=== PATIENT | female | born 1980 | race Caucasian/White ===

== ENCOUNTER 2016-07-12 14:21 | Emergency (ER) | payer OTHER ==
[2016-07-12] MEDS ORDERED: IPRATROPIUM-ALBUTEROL 3 ML NEB INHALATION STA (17:22)
[2016-07-12] MEDS ORDERED: ACETAMINOPHEN TAB 500 MG TAB PO STA (17:22)
[2016-07-12] MEDS ORDERED: PROMETHAZ-COD 6.25-10 MG/5 ML 5 ML CUP PO STA (17:24)
[2016-07-12] MEDS ORDERED: SODIUM CHLORIDE 0.9% 1,000 ML IV ONE (17:24)
[2016-07-12] MEDS ORDERED: SODIUM CHLORIDE 0.9% 1,000 ML IV SCH (17:30)
--- NOTE | 2016-07-12 17:56 | XR ---
EXAMINATION TYPE: XR chest 2V DATE OF EXAM: 07/12/2016 5:49 PM COMPARISON: 05/01/2015 HISTORY: Cough and short of breath TECHNIQUE: Frontal and lateral views of the chest are obtained. FINDINGS: Heart and mediastinum are normal. Lungs are clear. Diaphragm is normal. Bony thorax is int act IMPRESSION: Normal chest. Inspiration is improved compared to last exam.
[2016-07-12 18:00] LABS: Anion Gap 19 mmol/L; Blood Urea Nitrogen 10 mg/dL (7-17); Calcium 10.1 mg/dL (8.4-10.2); Carbon Dioxide 20 mmol/L (22-30); Chloride 104 mmol/L (98-107); Glucose 126 mg/dL (74-99); Non-African American GFR(MDRD) >60 (>60 ml/min/1.73 sqM); Potassium 3.9 mmol/L (3.5-5.1); Sodium 143 mmol/L (137-145)
[2016-07-12 18:02] LABS: Basophils # (A) 0.1 k/uL (0-0.2); Basophils % (A) 1 %; CH 32.4; CHCM 33.6; Eosinophils # (A) 0.4 k/uL (0-0.7); Eosinophils % (A) 7 %; HCT 45.7 % (34.0-46.0); HDW 2.79; HGB 15.3 gm/dL (11.4-16.0); Luc # (Auto) 0.22; Luc % (Auto) 3; Lymphocytes # (A) 1.7 k/uL (1.0-4.8); Lymphocytes % (A) 26 %; MCH 32.4 pg (25.0-35.0); MCHC 33.5 g/dL (31.0-37.0); MCV 96.8 fL (80.0-100.0); Mean Platelet Volume 7.7; Monocytes # (A) 0.3 k/uL (0-1.0); Monocytes % (A) 5 %; Neutrophils # (A) 3.8 k/uL (1.3-7.7); Neutrophils % (A) 58 %; RBC 4.72 m/uL (3.80-5.40); RDW 13.8 % (11.5-15.5); WBC 6.6 k/uL (3.8-10.6); WBC (Perox) 6.48
--- NOTE | 2016-07-12 18:14 | ED ---
URI HPI - General Chief Complaint: Upper Respiratory Infection Stated Complaint: cough fever SOB Time Seen by Provider: 07/12/16 17:03 Source: patient, RN notes reviewed Mode of arrival: ambulatory Limitations: no limitations - History of Present Illness Initial Comments: Patient is a 35-year-old female chief complaint of cough for approximately 3 weeks. Patient reports that she's completed a round of Augmentin and is now currently taking doxycycline. Patient reports that in between the 2 doses she felt somewhat okay but then started a significant. Patient states that she's been doing breathing treatments and is not helping with her cough. She reports that she's felt feverish and chilled been alternating between Motrin and Tylenol. Last dose of Motrin was 2 hours prior to arrival. Patient arrives to the emergency department tachycardic 130 bpm. 95% on room air. BP 131/84. Temperature 98.0. Patient has a past medical history of Crohn's disease. She reports that this is managed well. - Related Data Home Medications Medication Instructions Recorded Confirmed Mesalamine [Lialda] 3 gm PO DAILY 11/17/13 07/12/16 Mometasone Inhalr 220 Mcg/Puff 1 puff INHALATION RT-DAILY 11/17/13 07/12/16 [Asmanex] Omeprazole [PriLOSEC] 20 mg PO AC-BRKFST 11/17/13 07/12/16 Albuterol Inhaler [Ventolin Hfa 2 puff INHALATION RT-Q6H PRN 05/01/15 07/12/16 Inhaler] Albuterol Nebulized [Ventolin 2.5 mg INHALATION TID PRN 07/12/16 07/12/16 Nebulized] Cetirizine HCl [Zyrtec] 10 mg PO DAILY 07/12/16 07/12/16 Cholestyramine (with Sugar) 1 scoop PO DAILY 07/12/16 07/12/16 [Questran Powder] Doxycycline Hyclate [Vibramycin] 100 mg PO BID 07/12/16 07/12/16 Previous Rx's Medication Instructions Recorded Promethazine/Dextromethorphan 5 ml PO TID #120 ml 07/12/16 [Phenergan DM Syrup] predniSONE 20 mg PO BID 3 Days 07/12/16 Allergies Allergy/AdvReac Type Severity Reaction Status Date / Time escitalopram oxalate AdvReac Hallucinati Verified 07/12/16 18:18 [From Lexapro] ons Review of Systems ROS Statement: Those systems with pertinent positive or pertinent negative responses have been documented in the HPI. ROS Other: All systems not noted in ROS Statement are negative. 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) History of Any Multi-Drug Resistant Organisms: None Reported Past Surgical History: Appendectomy, Bowel Resection, Section, Cholecystectomy, Uterine Ablation Additional Past Surgical History / Comment(s): colon resection Past Anesthesia/Blood Transfusion Reactions: No Reported Reaction Past Psychological History: No Psychological Hx Reported Smoking Status: Never smoker Past Alcohol Use History: Occasional Past Drug Use History: None Reported - Past Family History Father Family Medical History: Hypertension Additional Family Medical History / Comment(s): diabetes, high bp Mother Family Medical History: Diabetes Mellitus, Hypertension Additional Family Medical History / Comment(s): uncles have heart problems but not dad Brother(s) Family Medical History: Diabetes Mellitus, Hypertension General Exam Limitations: no limitations General appearance: alert, in no apparent distress Head exam: Present: atraumatic, normocephalic, normal inspection Eye exam: Present: normal appearance, PERRL, EOMI. Absent: scleral icterus, conjunctival injection, periorbital swelling ENT exam: Present: normal exam, mucous membranes moist Neck exam: Present: normal inspection. Absent: tenderness, meningismus, lymphadenopathy Respiratory exam: Present: normal lung sounds bilaterally, other (significant coughing). Absent: respiratory distress, wheezes, rales, rhonchi, stridor Cardiovascular Exam: Present: regular rate, normal rhythm, normal heart sounds. Absent: systolic murmur, diastolic murmur, rubs, gallop, clicks GI/Abdominal exam: Present: soft, normal bowel sounds. Absent: distended, tenderness, guarding, rebound, rigid Extremities exam: Present: normal inspection, full ROM, normal capillary refill. Absent: tenderness, pedal edema, joint swelling, calf tenderness Back exam: Present: normal inspection Neurological exam: Present: alert, oriented X3, CN II-XII intact Psychiatric exam: Present: normal affect, normal mood Skin exam: Present: warm, dry, intact, normal color. Absent: rash Course Vital Signs 07/12/16 07/12/16 07/12/16 14:52 18:24 18:26 Temperature 97.5 F L 98.0 F Pulse Rate 130 H 106 H 104 H Respiratory 20 18 Rate Blood Pressure 131/84 140/89 O2 Sat by Pulse 95 97 Oximetry 07/12/16 07/12/16 18:32 20:26 Temperature 97.9 F Pulse Rate 101 H 98 Respiratory 18 Rate Blood Pressure 134/78 O2 Sat by Pulse 96 Oximetry Medical Decision Making - Medical Decision Making Patient is a 35-year-old female chief complaint of cough for approximately 3 weeks. Patient reports that she's completed a round of Augmentin and is now currently taking doxycycline. Patient reports that in between the 2 doses she felt somewhat okay but then started a significant. Patient states that she's been doing breathing treatments and is not helping with her cough. She reports that she's felt feverish and chilled been alternating between Motrin and Tylenol. Last dose of Motrin was 2 hours prior to arrival. Patient arrives to the emergency department tachycardic 130 bpm. 95% on room air. BP 131/84. Temperature 98.0. Patient has a past medical history of Crohn's disease. She reports that this is managed well. Patient has a continuous cough in the emergency department. She has no wheezing or signs of respiratory distress. Patient denies any other physical symptoms. She has no fever at this time. Patient is currently taking doxycycline which she was prescribed a few days ago. Patient lab work was reviewed to be negative. Including a d-dimer. Discussed case with Dr. Ponce. I also discussed the case with the patient and she stated that she wants to go home. Patient will be discharged with cough syrup and steroids. Discussed close follow-up with primary care physician. Patient received treatment plan will comply. Return parameters were discussed. - Lab Data Result diagrams: 07/12/16 17:38 07/12/16 17:38 Lab Results 07/12/16 07/12/16 07/12/16 Range/Units 17:38 17:38 17:38 WBC 6.6 (3.8-10.6) k/uL RBC 4.72 (3.80-5.40) m/uL Hgb 15.3 (11.4-16.0) gm/dL Hct 45.7 (34.0-46.0) % MCV 96.8 (80.0-100.0) fL MCH 32.4 (25.0-35.0) pg MCHC 33.5 (31.0-37.0) g/dL RDW 13.8 (11.5-15.5) % Plt Count 273 (150-450) k/uL Neutrophils % 58 % Lymphocytes % 26 % Monocytes % 5 % Eosinophils % 7 % Basophils % 1 % Neutrophils # 3.8 (1.3-7.7) k/uL Lymphocytes # 1.7 (1.0-4.8) k/uL Monocytes # 0.3 (0-1.0) k/uL Eosinophils # 0.4 (0-0.7) k/uL Basophils # 0.1 (0-0.2) k/uL D-Dimer (<0.60) mg/L FEU Sodium 143 (137-145) mmol/L Potassium 3.9 (3.5-5.1) mmol/L Chloride 104 (98-107) mmol/L Carbon Dioxide 20 L (22-30) mmol/L Anion Gap 19 mmol/L BUN 10 (7-17) mg/dL Creatinine 0.75 (0.52-1.04) mg/dL Est GFR (MDRD) Af Amer >60 (>60 ml/min/1.73 sqM) Est GFR (MDRD) Non-Af >60 (>60 ml/min/1.73 sqM) Glucose 126 H (74-99) mg/dL Calcium 10.1 (8.4-10.2) mg/dL Magnesium (1.6-2.3) mg/dL Influenza Type A RNA Not Detected (Not Detectd) Influenza Type B (PCR) Not Detected (Not Detectd) 07/12/16 07/12/16 Range/Units 17:38 17:38 WBC (3.8-10.6) k/uL RBC (3.80-5.40) m/uL Hgb (11.4-16.0) gm/dL Hct (34.0-46.0) % MCV (80.0-100.0) fL MCH (25.0-35.0) pg MCHC (31.0-37.0) g/dL RDW (11.5-15.5) % Plt Count (150-450) k/uL Neutrophils % % Lymphocytes % % Monocytes % % Eosinophils % % Basophils % % Neutrophils # (1.3-7.7) k/uL Lymphocytes # (1.0-4.8) k/uL Monocytes # (0-1.0) k/uL Eosinophils # (0-0.7) k/uL Basophils # (0-0.2) k/uL D-Dimer 0.47 (<0.60) mg/L FEU Sodium (137-145) mmol/L Potassium (3.5-5.1) mmol/L Chloride (98-107) mmol/L Carbon Dioxide (22-30) mmol/L Anion Gap mmol/L BUN (7-17) mg/dL Creatinine (0.52-1.04) mg/dL Est GFR (MDRD) Af Amer (>60 ml/min/1.73 sqM) Est GFR (MDRD) Non-Af (>60 ml/min/1.73 sqM) Glucose (74-99) mg/dL Calcium (8.4-10.2) mg/dL Magnesium 2.0 (1.6-2.3) mg/dL Influenza Type A RNA (Not Detectd) Influenza Type B (PCR) (Not Detectd) - Radiology Data Radiology results: report reviewed Chest x-ray is negative for any acute process. Disposition Clinical Impression: Cough Disposition: HOME SELF-CARE Condition: Stable Instructions: Upper Respiratory Infection (ED) Additional Instructions: Patient has follow-up with primary care provider on Wednesday or Wednesday. Continue to take anabiotic. Return to the emergency department if any alarming signs or symptoms occur. Prescriptions: Promethazine/Dextromethorphan [Phenergan DM Syrup] 5 ml PO TID #120 ml predniSONE 20 mg PO BID 3 Days Referrals: Kris Sanders MD [Primary Care Provider] - 1-2 days Time of Disposition: 20:27
[2016-07-12 18:25] VITALS: RESP 18
[2016-07-12] MEDS ORDERED: methylPREDNISolone SOD SUCCI 125 MG/2 ML VIAL IV STA (20:26)
[2016-07-12 20:27] VITALS: BP 134/78; PULSE 98; TEMP 97.9
== END 2016-07-12 20:39 | disposition home or self-care (01) ==
LOC: EC 14:21
DX: R05 Cough (principal); J45.909 Unspecified asthma, uncomplicated; K21.9 Gastro-esophageal reflux disease without esophagitis; Z79.51 Long term (current) use of inhaled steroids; Z79.899 Other long term (current) drug therapy; Z87.19 Personal history of other diseases of the digestive system
CPT/HCPCS: 96361 ×4; 96374 ×2; 99283 ×2; 36415; 94640; 93005; 85379; 80048; 83735; 85025; 87040; 87502; 71020; J2930

== ENCOUNTER → 2016-08-26 | Outpatient (CLI) | payer OTHER ==
--- NOTE | 2016-08-26 21:30 | MR ---
EXAMINATION TYPE: MR angio head wo con DATE OF EXAM: 08/26/2016 COMPARISON: MRA brain December 29, 2014. 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 2-D and 3-D postprocessing imaging is performed. FINDINGS: A slightly dominant left vertebral artery is redemonstrated. Vertebral arteries are patent to basilar junction. There is hypoplastic left posterior communicating artery. There is small caliber but patent right posterior communicating artery. No significant stenosis or aneurysmal change is see n in the posterior circulation. Images of the anterior circulation show tortuous course to the anterior communicating artery which is patent. No significant focal stenosis or aneurysmal change is seen. IMPRESSION: No aneurysmal change at level of upper [place] of [place]. No significant change from prior.
--- NOTE | 2016-08-26 21:57 | MR ---
EXAMINATION TYPE: MR brain wo/w con DATE OF EXAM: 08/26/2016 COMPARISON: MRI brain December 29, 2014. 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 FINDINGS: Diffusion weighted images demonstrate no evidence of a recent infarct or other diffusion ab normality. There is no extra-axial fluid collection or significant white matter signal abnormality. The ventricular system and cisternal spaces are normal in size and appearance. The brain volume is age appropriate. Midline structures demonstrate normal morphology. The craniocervical junction appears within normal limits. Post contrast images demonstrate no abnormal enhancement including visualized portion of fac e. The dural venous sinuses appear patent. There is mild mucosal thickening involving maxillary sinus es bilaterally slightly more prominent versus prior. There is mild to moderate mucosal thickening inv olving bilateral ethmoid sinuses more prominent versus prior. IMPRESSION: More prominent chronic paranasal sinus disease as detailed above otherwise unremarkable octavia abreu
== END | disposition home or self-care (01) ==
LOC: RADMRIMAIN 20:35
PROVIDERS: ATTEND Ophthalmology
DX: Q28.3 Other malformations of cerebral vessels (principal)
CPT/HCPCS: 70544; 70553; A9577

== ENCOUNTER → 2017-08-10 | Outpatient (CLI) | payer BC ==
[2017-08-10 12:20] LABS: ALT 133 U/L (9-52); AST 123 U/L (14-36); Albumin 4.6 g/dL (3.5-5.0); Alkaline Phosphatase 132 U/L (38-126); Anion Gap 16 mmol/L; Blood Urea Nitrogen 10 mg/dL (7-17); Calcium 10.3 mg/dL (8.4-10.2); Carbon Dioxide 23 mmol/L (22-30); Chloride 103 mmol/L (98-107); Glucose 102 mg/dL (74-99); Potassium 4.5 mmol/L (3.5-5.1); Sodium 142 mmol/L (137-145); Total Bilirubin 0.8 mg/dL (0.2-1.3); Total Protein 7.2 g/dL (6.3-8.2)
[2017-08-10 12:22] LABS: Basophils # (A) 0.1 k/uL (0-0.2); Basophils % (A) 1 %; Eosinophils # (A) 0.5 k/uL (0-0.7); Eosinophils % (A) 6 %; HCT 43.1 % (34.0-46.0); HGB 14.4 gm/dL (11.4-16.0); Lymphocytes # (A) 2.3 k/uL (1.0-4.8); Lymphocytes % (A) 26 %; MCH 31.8 pg (25.0-35.0); MCHC 33.4 g/dL (31.0-37.0); Mean Platelet Volume 7.3; Monocytes # (A) 0.3 k/uL (0-1.0); Monocytes % (A) 4 %; Neutrophils # (A) 5.3 k/uL (1.3-7.7); Neutrophils % (A) 61 %; Platelet Count 262 k/uL (150-450); RBC 4.53 m/uL (3.80-5.40); WBC 8.7 k/uL (3.8-10.6)
== END | disposition home or self-care (01) ==
LOC: LABWHC1 11:36
PROVIDERS: ATTEND Internal Medicine Gastroenterology
DX: K50.90 Crohn's disease, unspecified, without complications (principal)
CPT/HCPCS: 36415; 80053; 85025

== ENCOUNTER → 2017-08-17 | Outpatient (CLI) | payer BC ==
[2017-08-17 13:50] LABS: Albumin 4.7 g/dL (3.5-5.0); Bilirubin, Delta 0.2 mg/dL (0.0-0.2); Bilirubin,Unconjugated 0.6 mg/dL (0.0-1.1); Total Bilirubin 0.8 mg/dL (0.2-1.3); Total Protein 7.2 g/dL (6.3-8.2)
[2017-08-17 18:27] LABS: Protein, Total 7.1 g/dL (6.2-8.2)
[2017-08-17 18:47] LABS: Iron Saturation 33.53 (12.00-45.00)
[2017-08-17 19:53] LABS: Hepatitis A Antibody IgM Non-Reactive (Non-Reactive); Hepatitis B Core IgM Non-Reactive (Non-Reactive)
[2017-08-18 12:52] LABS: Albumin 4.34 g/dL (3.80-4.90); Gamma Globulin 0.65 g/dL (0.70-1.50)
[2017-08-18 15:04] LABS: Ceruloplasmin 30.5 mg/dL (20.0-60.0)
== END | disposition home or self-care (01) ==
LOC: LABWHC1 12:35
PROVIDERS: ATTEND Physician Assistant
DX: R74.8 Abnormal levels of other serum enzymes (principal)
CPT/HCPCS: 36415; 80074; 80076; 82103; 82390; 82728; 83516; 83540; 83550; 84165; 86038

== ENCOUNTER → 2017-09-06 | Outpatient (CLI) | payer BC ==
--- NOTE | 2017-09-06 08:35 | FL ---
EXAMINATION TYPE: FL barium swallow DATE OF EXAM: 09/06/2017 COMPARISON: NONE HISTORY: Dysphasia hoarseness of voice TECHNIQUE: A single contrast UGI study is performed. FINDINGS: Esophagus dilates to normal caliber has normal contour to the gastroesophageal junction. Gastroesopha geal junction opens to normal caliber. Tertiary contractions are evident during the examination. There is incomplete stripping of the esopha geal bolus in the horizontal drinking position with a secondary contraction evident. IMPRESSIONS: 1. Presbyesophagus
== END | disposition home or self-care (01) ==
LOC: RADFLMAIN 07:51
PROVIDERS: ATTEND Otolaryngology
DX: K22.8 Other specified diseases of esophagus (principal)
CPT/HCPCS: 74220

== ENCOUNTER → 2017-10-20 | Day surgery (SDC) | payer BC ==
[2017-10-14 12:36] VITALS: BMI 36.3
[~2017-10-20] MED LIST: LACTATED RINGERS 1,000 ML IV SCH; LIDOCAINE 1% 20 ML VIAL (10MG/ML) FOR IV START SQ ONE; LIDOCAINE 1% INJ 10MG/ML (20 ML MDV) ONE; PROPOFOL 10 MG/ML 20 ML VIAL IV ONE; fentaNYL (PF) 50 MCG/ML 2 ML AMP ONE
[2017-10-20 07:57] VITALS: RESP 16; TEMP 98.1
--- NOTE | 2017-10-20 09:06 | P.PCN ---
Date of Procedure: 10/20/17 Procedure(s) Performed: BRIEF HISTORY: Patient is a 36-year-old, pleasant, male, scheduled for an upper endoscopy as a part of evaluation of long-standing history of GERD and chronic cough for the last few months duration. She is on Prilosec 20 mg daily despite which remains symptomatic. She was dilated by Dr. Hardy and Dr. Yoo. Recent barium esophagogram showed presbyesophagus. Because of the persistent cough she is scheduled for an upper endoscopy to evaluate further PROCEDURE PERFORMED: Esophagogastroduodenoscopy with biopsy. PREOPERATIVE DIAGNOSIS: Chronic cough/long-standing history of GERD. IV sedation per anesthesia. PROCEDURE: After informed consent was obtained, the patient was brought into the endoscopy unit. IV sedation was administered by Anesthesia under continuous monitoring. Initially the Olympus GIF-140 video endoscope was inserted into the mouth. Esophagus intubated without any difficulty. It was gradually advanced into the stomach and duodenum and carefully examined. The bulb and the second part of the duodenum appeared normal. The scope at this time was withdrawn to the stomach, adequately insufflated with air, and upon careful examination, mucosa of the antrum, had patchy areas of erythema in the prepyloric area and biopsies were done from this area. The body, cardia and the fundus appeared normal. The scope was then withdrawn into the esophagus. The GE junction was located at 39 cm from the incisors. The esophagus appeared normal. Biopsies were done from the distal esophagus. There were no erosions or ulcerations seen and the patient tolerated the procedure well. IMPRESSION: 1. Normal-appearing esophagus with no evidence of esophagitis, esophageal stricture or Escoto's esophagus. 2. Minimal antral gastritis. RECOMMENDATIONS: The findings of this examination were discussed with the patient as well as a family. She was advised to follow with the biopsy results. She was also advised to increase the Prilosec to 20 mg twice daily to be taken half hour before breakfast and dinnertime and follow antireflux measures. She will be seen in office in 3 months..
[2017-10-20 09:28] VITALS: BP 121/80; PULSE 89
== END | disposition home or self-care (01) ==
LOC: ORWHC2ENDO 07:31
PROVIDERS: ATTEND Internal Medicine Gastroenterology
DX: K21.9 Gastro-esophageal reflux disease without esophagitis (principal); K29.50 Unspecified chronic gastritis without bleeding; J45.909 Unspecified asthma, uncomplicated; Z88.8 Allergy status to other drugs, medicaments and biological substances; Z79.51 Long term (current) use of inhaled steroids; Z79.899 Other long term (current) drug therapy
CPT/HCPCS: 43239; 81025; 88305; J2001; J3010; J2704

== ENCOUNTER → 2017-11-03 | Outpatient (CLI) | payer BC ==
--- NOTE | 2017-11-04 09:40 | MM ---
Reason for exam: clinical finding. Last mammogram was performed 3 years and 3 months ago. History: Took hormonal contraceptives for 6 years. Physical Findings: Nurse did not find any significant physical abnormalities on exam. MG Diagnostic Mammo w CAD GABRIEL Bilateral CC and MLO view(s) were taken. ML and spot compression CC view(s) were taken of the right breast. Prior study comparison: August 14, 2014, right breast MG diagnostic mammo RT w CAD. February 13, 2014, right breast MG work up mamm w CAD RT. There are scattered fibroglandular densities. Asymmetric density centrally on the right CC view disperses on spot compression. No significant new findings when compared with previous films. These results were verbally communicated with the patient and result sheet given to the patient on 11/03/17. ASSESSMENT: Negative, BI-RAD 1 RECOMMENDATION: Routine screening mammogram of both breasts in 1 year. Manage on a clinical basis with regard to right breast twinges.
== END | disposition home or self-care (01) ==
LOC: RADMAMWWP 14:06
PROVIDERS: ATTEND Obstetrics & Gynecology
DX: N64.4 Mastodynia (principal)
CPT/HCPCS: 77066

== ENCOUNTER → 2017-12-29 | Day surgery (SDC) | payer BC ==
[2017-12-24 14:37] VITALS: BMI 36.3
[2017-12-29 14:01] VITALS: BP 137/93; PULSE 89; RESP 16; TEMP 97.4
--- NOTE | 2018-01-07 02:26 | PCN ---
PROCEDURE NOTE DATE OF SERVICE: 12/29/2017. BRIEF HISTORY: The patient is a 37-year-old pleasant white female who was admitted scheduled for a high-resolution esophageal manometry as a part of evaluation of intermittent dysphagia to solids for the last 3 months duration. The patient also has chronic cough and GERD- like symptoms. She was treated with PPIs in the past with no help. Recent upper endoscopy a month ago was unremarkable. She had a 24-hour pH study that did not show significant acid reflux. Because of the persistent symptoms and intermittent dysphagia to solids, she is scheduled for esophageal manometry to evaluate further. PROCEDURE PERFORMED: High-resolution impedance esophageal manometry. PREOPERATIVE DIAGNOSIS: Gastroesophageal reflux disease/chronic hoarseness and dysphagia. PROCEDURE: After informed consent was obtained from the patient, she was brought into the endoscopy unit. The procedure was performed by Endoscopy nurse, . The esophageal manometry catheter was passed from the external nostril and was gently advanced into the distal esophagus and into the stomach. The study was performed using liquid and viscous swallows. The study was interpreted using [place] classification. FINDINGS: 1. Lower esophageal sphincter data (mean IRP) mean integral residual pressure is 6 mmHg. 2. Lower esophageal body: Mean DCI 3726 mmHg. Peristaltic contractions were 100%. 3. Distal latency within normal limits. 4. Impedance study, liquid transit 100%, viscus transit 100%. INTERPRETATION: The impedance manometry study shows normal lower esophageal sphincter pressure and motility pattern in the esophageal body is within normal limits. There is no evidence of esophageal dysmotility. MMAPL / IJN: [id number] /
== END ==
LOC: ORWHC2ENDO 13:47
PROVIDERS: ATTEND Internal Medicine Gastroenterology
DX: K21.9 Gastro-esophageal reflux disease without esophagitis (principal); R13.10 Dysphagia, unspecified; R49.0 Dysphonia
CPT/HCPCS: 91010

== ENCOUNTER 2018-03-16 08:36 | Day surgery (SDC) | payer BC ==
[2018-03-16 09:14] LABS: Mean Platelet Volume 7.1; Platelet Count 243 k/uL (150-450)
[2018-03-16 09:24] LABS: INR 0.9 (<1.2)
[2018-03-16 09:28] VITALS: TEMP 98
[2018-03-16] MEDS ORDERED: ALPRAZolam 0.5 MG TAB PO STA (09:28)
[2018-03-16] MEDS ORDERED: HYDROmorphone 1 MG/ML 1 ML SYRINGE IVP STA (09:39)
[2018-03-16] MEDS ORDERED: ONDANSETRON 4 MG/2 ML VIAL IVP STA (10:58)
[2018-03-16] MEDS ORDERED: ONDANSETRON 4 MG/2 ML VIAL ONE (11:01)
[2018-03-16 12:21] VITALS: RESP 16
--- NOTE | 2018-03-16 13:00 | CT ---
EXAMINATION TYPE: CT biopsy liver DATE OF EXAM: 03/16/2018 COMPARISON: NONE HISTORY: Elevated LFTs CT DLP: 804mGycm The procedure was explained to the patient. The risks, complications, benefits, and alternatives wer e discussed and any questions were answered. Informed consent was obtained. Patient was placed supi ne on the CT table and prepped and draped in the usual sterile fashion. All elements of maximal barrier and sterile technique utilized. Utilizing CT guidance, an 18 gauge core biopsy needle access into the posterior segment right lobe o f the liver was achieved and a single 18 gauge core sample was obtained. The patient was stable thro ughout the procedure and remained stable upon discharge. IMPRESSION: 1. Successful 18 gauge core biopsy of the liver.
[2018-03-16 14:59] VITALS: BP 126/71; PULSE 81
== END 2018-03-16 14:34 | disposition home or self-care (01) ==
LOC: RADPROMAIN 08:36
PROVIDERS: ATTEND Internal Medicine Gastroenterology
DX: K75.81 Nonalcoholic steatohepatitis (NASH) (principal); K74.0 Hepatic fibrosis
CPT/HCPCS: 85049; 85610; 88313; 88307; 36415; 47000; 77012; J2405; J1170

== ENCOUNTER → 2018-07-14 | Outpatient (CLI) | payer BC ==
[2018-07-14 16:33] LABS: Albumin 4.8 g/dL (3.80-4.90); Albumin/Globulin Ratio 2.09 (1.60-3.17); Anion Gap 11.8 mmol/L (4.00-12.00); Calcium 9.8 mg/dL (8.7-10.3); Carbon Dioxide 22.2 mmol/L (21.6-31.8); Globulin 2.3 g/dL (1.6-3.3); Potassium 4.3 mmol/L (3.5-5.5); Total Bilirubin 0.6 mg/dL (0.3-1.2); Total Protein 7.1 g/dL (6.2-8.2)
== END | disposition home or self-care (01) ==
LOC: LABWHC1 10:32
PROVIDERS: ATTEND Internal Medicine Gastroenterology
DX: K76.0 Fatty (change of) liver, not elsewhere classified (principal)
CPT/HCPCS: 36415; 80053

== ENCOUNTER → 2018-09-02 | Outpatient (CLI) | payer BC ==
[2018-09-02 10:37] LABS: Basophils # (A) 0.1 k/uL (0-0.2); Basophils % (A) 1 %; Eosinophils # (A) 0.7 k/uL (0-0.7); Eosinophils % (A) 7 %; HCT 43.2 % (34.0-46.0); HGB 13.8 gm/dL (11.4-16.0); Lymphocytes # (A) 2.4 k/uL (1.0-4.8); Lymphocytes % (A) 24 %; MCH 30.7 pg (25.0-35.0); Monocytes # (A) 0.5 k/uL (0-1.0); Monocytes % (A) 5 %; Neutrophils % (A) 61 %; Platelet Count 234 k/uL (150-450); RDW 13.9 % (11.5-15.5); WBC 9.8 k/uL (3.8-10.6)
[2018-09-02 16:09] LABS: LDL Cholesterol,Calculated 129.4 mg/dL (0.0-131.0); VLDL Calculation 34.6 mg/dL (5.00-40.00)
== END | disposition home or self-care (01) ==
LOC: LABWHC1 09:30
PROVIDERS: ATTEND Internal Medicine
DX: Z00.00 Encounter for general adult medical examination without abnormal findings (principal); G51.39 Clonic hemifacial spasm, unspecified; K50.90 Crohn's disease, unspecified, without complications; E55.9 Vitamin D deficiency, unspecified
CPT/HCPCS: 36415; 80061; 82306; 84443; 85025

== ENCOUNTER → 2018-11-08 | Outpatient (CLI) | payer BC ==
--- NOTE | 2018-11-08 10:43 | MR ---
EXAMINATION TYPE: MR brain wo/w con DATE OF EXAM: 11/08/2018 COMPARISON: MR brain 08/26/2016 HISTORY: Clonic hemifacial spasm, left TECHNIQUE: Multiplanar, multisequence images of the brain and brainstem is performed without and with IV contras t, utilizing 9.5 mL intravenous Gadavist . FINDINGS: Diffusion weighted images demonstrate no evidence of a recent infarct or other diffusion ab normality. There is no extra-axial fluid collection or significant white matter signal abnormality. The ventricular system and cisternal spaces are normal in size and appearance. The brain volume is age appropriate. Midline structures demonstrate normal morphology. The craniocervical junction appears within normal limits. Post contrast images demonstrate no abnormal enhancement. The dural venous sinuses appear pa tent. The visualized sinuses are remarkable for mucoperiosteal thickening in ethmoid air cells, bilat eral maxillary sinus, possible polyp left maxillary sinus, and the globes are intact. IMPRESSION: Stable unremarkable brain MRI. Sinus disease.
== END | disposition home or self-care (01) ==
LOC: RADMRIMAIN 08:58
PROVIDERS: ATTEND Psychiatry & Neurology Neurology
DX: G51.32 Clonic hemifacial spasm, left (principal)
CPT/HCPCS: 70553; A9585

== ENCOUNTER → 2018-12-28 | Outpatient (CLI) | payer BC ==
--- NOTE | 2018-12-30 11:51 | MM ---
Reason for exam: screening (asymptomatic). Last mammogram was performed 1 year and 2 months ago. History: Took hormonal contraceptives for 6 years. Physical Findings: A clinical breast exam by your physician is recommended on an annual basis and results should be correlated with mammographic findings. MG Screening Mammo w CAD Bilateral CC and MLO view(s) were taken. Prior study comparison: November 03, 2017, bilateral MG diagnostic mammo w CAD GABRIEL. August 14, 2014, right breast MG diagnostic mammo RT w CAD. The breast tissue is heterogeneously dense. This may lower the sensitivity of mammography. No significant changes when compared with prior studies. ASSESSMENT: Negative, BI-RAD 1 RECOMMENDATION: Routine screening mammogram of both breasts in 1 year.
== END | disposition home or self-care (01) ==
LOC: RADMAMWWP 10:44
PROVIDERS: ATTEND Obstetrics & Gynecology
DX: Z12.31 Encounter for screening mammogram for malignant neoplasm of breast (principal)
CPT/HCPCS: 77067

== ENCOUNTER 2019-01-20 10:13 | Day surgery (SDC) | payer BC ==
[2019-01-18 14:34] VITALS: BMI 36.3
[~2019-01-20 10:13] MED LIST changes: +LIDOCAINE 1% 20 ML VIAL (10MG/ML) FOR IV START INTRADERMA PRN; -LIDOCAINE 1% 20 ML VIAL (10MG/ML) FOR IV START SQ ONE; -LIDOCAINE 1% INJ 10MG/ML (20 ML MDV) ONE; -PROPOFOL 10 MG/ML 20 ML VIAL IV ONE; -fentaNYL (PF) 50 MCG/ML 2 ML AMP ONE
[2019-01-20 10:53] VITALS: RESP 16; TEMP 98
[2019-01-20 10:55] LABS: Glucose,Whole Blood 130 mg/dL (75-99)
[2019-01-20] MEDS ORDERED: PROPOFOL 10 MG/ML 20 ML VIAL IV ONE (11:21)
--- NOTE | 2019-01-20 11:44 | P.PCN ---
Date of Procedure: 01/20/19 Procedure(s) Performed: BRIEF HISTORY: Patient is a 38-year-old pleasant female scheduled for an elective colonoscopy as a part of surveillance of long-standing history of Crohn's disease. She is status post terminal ileal resection several years ago. Maintained on Lialda 4 tablets daily. He remains in clinical remission. PROCEDURE PERFORMED: Colonoscopy. PREOPERATIVE DIAGNOSIS: History of Crohn's disease. IV sedation per Anesthesia. PROCEDURE: After informed consent was obtained, the patient, was brought into the endoscopy unit. IV sedation was administered by Anesthesia under continuous monitoring. Digital rectal examination was normal. Initially the Olympus CF-160 flexible video colonoscope was then inserted in the rectum, gradually advanced into the right colon without any difficulty. The ileocolonic anastomosis was visualized and appeared normal. The scope was advanced into the distal ileum and 20 cm visualized that appeared normal. Mucosa of the ascending colon, transverse colon, descending colon, sigmoid colon, and rectum appeared normal. Retroflexion was performed in the rectum and no lesions were seen. The patient tolerated the procedure well. IMPRESSION: Normal-appearing colon from rectum to right colon with no evidence of colitis or colorectal neoplasia Normal ileocolic anastomosis but no evidence of recurrent Crohn's disease RECOMMENDATIONS: Findings of this examination were discussed with the patient as well his family. She was advised to have a repeat surveillance colonoscopy in 3-5 years..
[2019-01-20 12:20] VITALS: BP 143/93; PULSE 70
== END 2019-01-20 12:30 | disposition home or self-care (01) ==
LOC: ORWHC2ENDO 10:13
PROVIDERS: ATTEND Internal Medicine Gastroenterology
DX: K50.90 Crohn's disease, unspecified, without complications (principal); J45.909 Unspecified asthma, uncomplicated; E11.9 Type 2 diabetes mellitus without complications; N30.10 Interstitial cystitis (chronic) without hematuria; F41.9 Anxiety disorder, unspecified; K21.9 Gastro-esophageal reflux disease without esophagitis; H57.9 Unspecified disorder of eye and adnexa; Z90.49 Acquired absence of other specified parts of digestive tract; Z79.84 Long term (current) use of oral hypoglycemic drugs; Z79.51 Long term (current) use of inhaled steroids; Z79.899 Other long term (current) drug therapy; Z88.8 Allergy status to other drugs, medicaments and biological substances
CPT/HCPCS: 45378; 81025; J2704

== ENCOUNTER → 2019-01-21 | Outpatient (CLI) | payer BC ==
[2019-01-21 18:46] LABS: African American GFR (CKD) 125.6 (60.0-200.0); Albumin 4.6 g/dL (3.80-4.90); Albumin/Globulin Ratio 2.19 (1.60-3.17); Anion Gap 12.7 mmol/L (4.00-12.00); BUN/Creat Ratio 8.57 Ratio (12.00-20.00); Calcium 9.4 mg/dL (8.7-10.3); Carbon Dioxide 24.3 mmol/L (21.6-31.8); Globulin 2.1 g/dL (1.6-3.3); Potassium 4.5 mmol/L (3.5-5.5); Total Bilirubin 0.8 mg/dL (0.2-1.2); Total Protein 6.7 g/dL (6.2-8.2)
== END | disposition home or self-care (01) ==
LOC: LABWHC1 10:09
PROVIDERS: ATTEND Physician Assistant
DX: K76.0 Fatty (change of) liver, not elsewhere classified (principal)
CPT/HCPCS: 36415; 80053

== ENCOUNTER → 2019-08-29 | Outpatient (CLI) | payer BC ==
[2019-08-29 20:02] LABS: African American GFR (CKD) 125.6 (60.0-200.0); Albumin 4.6 g/dL (3.80-4.90); Albumin/Globulin Ratio 2.19 (1.60-3.17); Anion Gap 10.6 mmol/L (4.00-12.00); BUN/Creat Ratio 12.86 Ratio (12.00-20.00); Calcium 9.7 mg/dL (8.7-10.3); Carbon Dioxide 23.4 mmol/L (21.6-31.8); Globulin 2.1 g/dL (1.6-3.3); Non-African American GFR(CKD) 108.4 (60.0-200.0); Potassium 4.6 mmol/L (3.5-5.5); Total Bilirubin 0.8 mg/dL (0.2-1.2); Total Protein 6.7 g/dL (6.2-8.2)
== END | disposition home or self-care (01) ==
LOC: LABWHC1 11:01
PROVIDERS: ATTEND Physician Assistant
DX: K76.0 Fatty (change of) liver, not elsewhere classified (principal)
CPT/HCPCS: 36415; 80053

== ENCOUNTER 2020-01-27 11:26 | Emergency (ER) | payer BC ==
[2020-01-27 11:43] VITALS: RESP 18; TEMP 98.7
[2020-01-27 12:22] LABS: Basophils # (A) 0.2 k/uL (0-0.2); Basophils % (A) 2 %; Eosinophils # (A) 0.7 k/uL (0-0.7); Eosinophils % (A) 8 %; HCT 46.7 % (34.0-46.0); HGB 15.3 gm/dL (11.4-16.0); Lymphocytes # (A) 2.3 k/uL (1.0-4.8); Lymphocytes % (A) 26 %; MCH 32.7 pg (25.0-35.0); MCHC 32.9 g/dL (31.0-37.0); MCV 99.4 fL (80.0-100.0); Mean Platelet Volume 8.1; Monocytes # (A) 0.4 k/uL (0-1.0); Monocytes % (A) 5 %; Neutrophils # (A) 4.9 k/uL (1.3-7.7); Neutrophils % (A) 57 %; Platelet Count 198 k/uL (150-450); RDW 12.4 % (11.5-15.5); WBC 8.6 k/uL (3.8-10.6)
[2020-01-27 12:39] LABS: ALT 31 U/L (4-34); AST 37 U/L (14-36); African American GFR (CKD) >90 (>60 ml/min/1.73 sqM); Albumin 4.5 g/dL (3.5-5.0); Alkaline Phosphatase 105 U/L (38-126); Anion Gap 8 mmol/L; Blood Urea Nitrogen 11 mg/dL (7-17); Calcium 9.7 mg/dL (8.4-10.2); Carbon Dioxide 20 mmol/L (22-30); Chloride 110 mmol/L (98-107); Glucose 113 mg/dL (74-99); Non-African American GFR(CKD) >90 (>60 ml/min/1.73 sqM); Potassium 4.5 mmol/L (3.5-5.1); Sodium 138 mmol/L (137-145); Total Bilirubin 1.3 mg/dL (0.2-1.3); Total Protein 7.6 g/dL (6.3-8.2)
--- NOTE | 2020-01-27 13:22 | CT ---
EXAMINATION TYPE: CT abdomen pelvis w con DATE OF EXAM: 01/27/2020 HISTORY: Abd pain, history of Crohn's disease with rectal pain and lack of recent bowel movement CT DLP: 1414.5mGycm Automated Exposure Control for Dose Reduction was Utilized. CONTRAST: CT scan of the abdomen and pelvis is performed with IV Contrast, patient injected with 100 mL of Isov ue 300. COMPARISON: CT abdomen and pelvis January 13, 2015 FINDINGS: LUNG BASES: There is tiny pericardial effusion anterior right aspect inferiorly. LIVER/GB: Cholecystectomy clips now present. Liver remains low dense relative to spleen consistent wi th diffuse fatty infiltration PANCREAS: No significant abnormality is seen. SPLEEN: No significant abnormality is seen. ADRENALS: No significant abnormality is seen. KIDNEYS: Symmetrical cortical medullary uptake and excretion without hydronephrosis bilaterally. Part ially duplicated right-sided collecting system and proximal ureters redemonstrated. BOWEL: Suboptimal evaluation of bowel without enteric contrast. There are [address] [facility]. No suspicious small or large bowel dilatation. Surgical sutures in the cecum and terminal ileu m with anterior anastomosis or neoileum axial image 55. No suspicious wall thickening or focal dilata tion. Some prominent focal fluid and fecal debris in the cecum with air-fluid level. Occasional sigmo id colonic diverticula. No CT evidence for acute diverticulitis. UTERUS/ADNEXA: Anteverted uterus. Both ovaries normal in size. Within left ovary there is 1.6 cm rim enhancing lesion possible corpus luteal cyst from recent ovulation. LYMPH NODES: No greater than 1cm abdominal or pelvic lymph nodes are appreciated. OSSEOUS STRUCTURES: No significant abnormality is seen. OTHER: No significant additional abnormality is seen. IMPRESSION: Focal surgical change redemonstrated at the ileocecal level and cecum. Focal prominence o f fluid and fecal debris at this level. Overall nonobstructive bowel gas pattern. No new or acute fin ding otherwise identified.
--- NOTE | 2020-01-27 14:10 | ED ---
General Adult HPI - General Chief complaint: Abdominal Pain Stated complaint: Abd Pain Time Seen by Provider: 01/27/20 14:00 Source: patient, RN notes reviewed, old records reviewed Mode of arrival: ambulatory Limitations: no limitations - History of Present Illness Initial comments: This is a 39-year-old female who presents emergency Department with a past medical history significant for Crohn's. Patient states she's had Crohn's for 20 years. Patient states he comes in today because she is having quite a bit of rectal pain and she has not had a bowel movement in days. Patient states this is pretty atypical of her Crohn's. Patient states she spoke with her GI doctor and they wanted to come in and rule out an abscess. Patient denies any recent fever chills per patient denies any anterior abdominal pain. Patient denies any back pain. Patient denies dysuria hematuria urinary frequency. Patient denies any rectal bleeding. - Related Data Home Medications Medication Instructions Recorded Confirmed Mesalamine [Lialda] 3.6 gm PO DAILY 11/17/13 01/27/20 Cetirizine HCl [Zyrtec] 10 mg PO DAILY 07/12/16 01/27/20 Cholestyramine (with Sugar) 1 scoop PO DAILY 07/12/16 01/27/20 [Questran Powder] Fluticasone Nasal [place] [Flonase 1 spray EA NOSTRIL DAILY 10/14/17 01/27/20 Nasal [place]] Mometasone Inhalr 220 Mcg/Puff 1 puff INHALATION RT-DAILY 01/26/18 01/27/20 [Asmanex] Famotidine [Pepcid] 20 mg PO QAM 01/18/19 01/27/20 Mirabegron [Myrbetriq] 50 mg PO Q48H 01/18/19 01/27/20 Hydrocortisone Cream 1 applic TOPICAL DAILY PRN 01/27/20 01/27/20 [Hydrocortisone 2.5% Cream] Hydrocortisone Suppository 25 mg RECTAL BID 01/27/20 01/27/20 [Anusol-Hc] Semaglutide [Ozempic] 0.25 mg SQ FR 01/27/20 01/27/20 Triamcinolone 0.1% Cream [Kenalog 1 applicatio TOPICAL DAILY PRN 01/27/20 01/27/20 0.1% Cream] Previous Rx's Medication Instructions Recorded Ciprofloxacin HCl [Cipro] 500 mg PO Q12HR #20 tablet 01/27/20 metroNIDAZOLE [Flagyl] 500 mg PO QID 10 Days #40 tab 01/27/20 predniSONE [Deltasone] 40 mg PO DAILY #8 tab 01/27/20 Allergies Allergy/AdvReac Type Severity Reaction Status Date / Time escitalopram oxalate AdvReac Hallucinati Verified 01/27/20 13:33 [From Lexapro] ons Review of Systems ROS Statement: Those systems with pertinent positive or pertinent negative responses have been documented in the HPI. ROS Other: All systems not noted in ROS Statement are negative. 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),"prediabetes" History of Any Multi-Drug Resistant Organisms: None Reported Past Surgical History: Appendectomy, Bladder Surgery, Bowel Resection, Section, Cholecystectomy, Uterine Ablation Additional Past Surgical History / Comment(s): Colonoscopies, colon resection R/T CROHN'S, EGD, esophageal manometry, cystoscopy/monarch sling Past Anesthesia/Blood Transfusion Reactions: Motion Sickness, Postoperative Nausea & Vomiting (PONV) Past Psychological History: Anxiety Smoking Status: Never smoker Past Alcohol Use History: Occasional Past Drug Use History: None Reported - Past Family History Father Family Medical History: Diabetes Mellitus, Hyperlipidemia Additional Family Medical History / Comment(s): diabetes, high bp Mother Family Medical History: Diabetes Mellitus, Hypertension Additional Family Medical History / Comment(s): uncles have heart problems but not dad Brother(s) Family Medical History: Diabetes Mellitus, Hypertension General Exam - General Exam Comments Initial Comments: GENERAL: Patient is well-developed and well-nourished. Patient is nontoxic and well-hyd rated and is in mild distress. ENT: Neck is soft and supple. No significant lymphadenopathy is noted. Oropharynx is clear. Moist mucous membranes. Neck has full range of motion without eliciting any pain. EYES: The sclera were anicteric and conjunctiva were pink and moist. Extraocular movements were intact and pupils were equal round and reactive to light. Eyelids were unremarkable. PULMONARY: Unlabored respirations. Good breath sounds bilaterally. No audible rales rhonchi or wheezing was noted. CARDIOVASCULAR: There is a regular rate and rhythm without any murmurs gallops or rubs. ABDOMEN: Soft and nontender with normal bowel sounds. RECTAL: On rectal exam didn't appear to be a little fullness on the left lateral aspect however there was no external signs of any abscess no fluctuance and no redness. Patient did say that area was also more tender. SKIN: Skin is clear with no lesions or rashes and otherwise unremarkable. NEUROLOGIC: Patient is alert and oriented x3. Cranial nerves II through XII are grossly intact. Motor and sensory are also intact. Normal speech, volume and content. Symmetrical smile. MUSCULOSKELETAL: Normal extremities with adequate strength and full range of motion. LYMPHATICS: No significant lymphadenopathy is noted PSYCHIATRIC: Normal psychiatric evaluation. Limitations: no limitations Course Vital Signs 01/27/20 01/27/20 11:40 13:36 Temperature 98.7 F Pulse Rate 124 H 86 Respiratory 18 18 Rate Blood Pressure 150/94 139/93 O2 Sat by Pulse 98 97 Oximetry Medical Decision Making - Medical Decision Making Computed tomography scan of the abdomen and pelvis showed no acute abnormality. I spoke with Dr. Perez she wanted the patient to be put on a short course of steroids as well as Cipro and Flagyl. Patient's follow-up with Dr. Perez on Wednesday and patient was in agreement with this. - Lab Data Result diagrams: 01/27/20 12:03 01/27/20 12:03 Lab Results 01/27/20 01/27/20 Range/Units 12:03 12:03 WBC 8.6 (3.8-10.6) k/uL RBC 4.70 (3.80-5.40) m/uL Hgb 15.3 (11.4-16.0) gm/dL Hct 46.7 H (34.0-46.0) % MCV 99.4 (80.0-100.0) fL MCH 32.7 (25.0-35.0) pg MCHC 32.9 (31.0-37.0) g/dL RDW 12.4 (11.5-15.5) % Plt Count 198 (150-450) k/uL Neutrophils % 57 % Lymphocytes % 26 % Monocytes % 5 % Eosinophils % 8 % Basophils % 2 % Neutrophils # 4.9 (1.3-7.7) k/uL Lymphocytes # 2.3 (1.0-4.8) k/uL Monocytes # 0.4 (0-1.0) k/uL Eosinophils # 0.7 (0-0.7) k/uL Basophils # 0.2 (0-0.2) k/uL Sodium 138 (137-145) mmol/L Potassium 4.5 (3.5-5.1) mmol/L Chloride 110 H (98-107) mmol/L Carbon Dioxide 20 L (22-30) mmol/L Anion Gap 8 mmol/L BUN 11 (7-17) mg/dL Creatinine 0.67 (0.52-1.04) mg/dL Est GFR (CKD-EPI)AfAm >90 (>60 ml/min/1.73 sqM) Est GFR (CKD-EPI)NonAf >90 (>60 ml/min/1.73 sqM) Glucose 113 H (74-99) mg/dL Calcium 9.7 (8.4-10.2) mg/dL Total Bilirubin 1.3 (0.2-1.3) mg/dL AST 37 H (14-36) U/L ALT 31 (4-34) U/L Alkaline Phosphatase 105 (38-126) U/L Total Protein 7.6 (6.3-8.2) g/dL Albumin 4.5 (3.5-5.0) g/dL Disposition Clinical Impression: Constipation, Rectal pain Disposition: HOME SELF-CARE Condition: Good Instructions (If sedation given, give patient instructions): Crohn Disease (ED), Rectal Pain (ED) Prescriptions: Ciprofloxacin HCl [Cipro] 500 mg PO Q12HR #20 tablet predniSONE [Deltasone] 40 mg PO DAILY #8 tab metroNIDAZOLE [Flagyl] 500 mg PO QID 10 Days #40 tab Is patient prescribed a controlled substance at d/c from ED?: No Referrals: Kris Sanders MD [Primary Care Provider] - 1-2 days Time of Disposition: 14:39
[2020-01-27] MEDS ORDERED: methylPREDNISolone SOD SUCCI 125 MG/2 ML VIAL IV STA (14:40)
[2020-01-27 14:59] VITALS: BP 131/90; PULSE 71
== END 2020-01-27 14:53 | disposition home or self-care (01) ==
LOC: EC 11:26
DX: K59.00 Constipation, unspecified (principal); J45.909 Unspecified asthma, uncomplicated; E11.9 Type 2 diabetes mellitus without complications; K21.9 Gastro-esophageal reflux disease without esophagitis; F41.9 Anxiety disorder, unspecified; Z79.4 Long term (current) use of insulin; Z79.899 Other long term (current) drug therapy; Z88.8 Allergy status to other drugs, medicaments and biological substances; Z90.710 Acquired absence of both cervix and uterus; Z90.49 Acquired absence of other specified parts of digestive tract
CPT/HCPCS: 36415; 80053; 85025; 74177; 99284; 96374; J2930; Q9967

== ENCOUNTER → 2020-03-08 | Outpatient (CLI) | payer BC ==
[2020-03-08 16:04] LABS: African American GFR (CKD) 124.7 (60.0-200.0); Albumin 4.7 g/dL (3.80-4.90); Albumin/Globulin Ratio 2.35 (1.60-3.17); Anion Gap 6.4 mmol/L (4.00-12.00); BUN/Creat Ratio 27.14 Ratio (12.00-20.00); Calcium 9.7 mg/dL (8.7-10.3); Carbon Dioxide 25.6 mmol/L (21.6-31.8); Non-African American GFR(CKD) 107.6 (60.0-200.0); Potassium 4.4 mmol/L (3.5-5.5); Total Bilirubin 0.9 mg/dL (0.3-1.2); Total Protein 6.7 g/dL (6.2-8.2)
== END | disposition home or self-care (01) ==
LOC: LABWHC1 09:52
PROVIDERS: ATTEND Physician Assistant
DX: K76.0 Fatty (change of) liver, not elsewhere classified (principal)
CPT/HCPCS: 36415; 80053

== ENCOUNTER → 2020-04-26 | Outpatient (CLI) | payer BC ==
--- NOTE | 2020-04-29 08:54 | MM ---
Reason for exam: screening (asymptomatic). Last mammogram was performed 1 year and 4 months ago. History: Took hormonal contraceptives for 6 years. Physical Findings: A clinical breast exam by your physician is recommended on an annual basis and results should be correlated with mammographic findings. MG 3D Screening Mammo W/Cad Bilateral CC and MLO view(s) were taken. Prior study comparison: December 28, 2018, bilateral MG screening mammo w CAD. November 03, 2017, bilateral MG diagnostic mammo w CAD GABRIEL. The breast tissue is heterogeneously dense. This may lower the sensitivity of mammography. There is no discrete abnormality. No significant changes when compared with prior studies. ASSESSMENT: Negative, BI-RAD 1 RECOMMENDATION: Routine screening mammogram of both breasts in 1 year.
== END | disposition home or self-care (01) ==
LOC: RADMAMWWP 15:47
PROVIDERS: ATTEND Obstetrics & Gynecology
DX: Z12.31 Encounter for screening mammogram for malignant neoplasm of breast (principal)
CPT/HCPCS: 77063; 77067

== ENCOUNTER → 2020-10-09 | Outpatient (CLI) | payer BC ==
[2020-10-09 16:48] LABS: HCT 40.3 % (37.2-46.3); HGB 13.6 g/dL (12.0-15.0); MCH 32.9 pg (27.0-32.0); MCHC 33.7 g/dL (32.0-37.0); MCV 97.3 fL (80.0-97.0); Mean Platelet Volume 11.3 fL (9.5-12.2); Platelet Count 240 X 10*3/uL (140-440); RBC 4.14 X 10*6/uL (4.10-5.20); RDW 12.9 % (11.5-14.5); WBC 9.26 X 10*3/uL (4.50-10.00)
[2020-10-09 18:46] LABS: Gliadin AB IgA, Deaminated NEGATIVE (NEGATIVE); Gliadin AB IgA, Unit 0.6 U/mL; Gliadin AB IgG, Deaminated NEGATIVE (NEGATIVE)
[2020-10-09 23:30] LABS: Albumin 4.7 g/dL (3.80-4.90); Albumin/Globulin Ratio 2.14 (1.60-3.17); Bilirubin, Conjugated 0.2 mg/dL (0.20-0.40); Bilirubin,Unconjugated 0.7 mg/dL; Globulin 2.2 g/dL (1.6-3.3); Total Bilirubin 0.9 mg/dL (0.3-1.2); Total Protein 6.9 g/dL (6.2-8.2)
== END | disposition home or self-care (01) ==
LOC: LABWHC1 10:36
PROVIDERS: ATTEND Physician Assistant
DX: R14.0 Abdominal distension (gaseous) (principal); R74.8 Abnormal levels of other serum enzymes
CPT/HCPCS: 36415; 80076; 83516; 85027

== ENCOUNTER → 2020-12-28 | Outpatient (CLI) | payer BC ==
[2020-12-28 21:52] LABS: African American GFR (CKD) 128.9 (60.0-200.0); Anion Gap 15.7 mmol/L (4.00-12.00); BUN/Creat Ratio 20.81 Ratio (12.00-20.00); Blood Urea Nitrogen 12.9 mg/dL (9.0-27.0); Calcium 9.1 mg/dL (8.7-10.3); Carbon Dioxide 16.9 mmol/L (21.6-31.8); Chol/HDL Ratio 2.72 Ratio; HDL Cholesterol 61.4 mg/dL (40.00-60.00); LDL Cholesterol,Calculated 82.6 mg/dL (0.0-131.0); Non-African American GFR(CKD) 111.2 (60.0-200.0); Potassium 4.4 mmol/L (3.5-5.5)
== END | disposition home or self-care (01) ==
LOC: LABWHC1 09:34
PROVIDERS: ATTEND Family Medicine
DX: Z00.01 Encounter for general adult medical examination with abnormal findings (principal)
CPT/HCPCS: 36415; 80048; 80061

== ENCOUNTER → 2021-05-06 | Outpatient (CLI) | payer BC ==
--- NOTE | 2021-05-07 07:29 | US ---
EXAMINATION TYPE: US thyroid st tissue head/neck DATE OF EXAM: 05/06/2021 COMPARISON: NONE CLINICAL HISTORY: R44.8 foreign body sensation. GLAND SIZE: Right Lobe: 4.1 x 1.1 x 1.5 cm Overall Parenchyma: homogenous Left Lobe: 3.7 x 0.9 x 1.4 cm Overall Parenchyma: homogeneous Isthmus Thickness: 0.3 cm NODULES RIGHT: # of nodules measured on right: 0 LEFT: # of nodules measured on left: 0 ISTHMUS: # of nodules measured in the isthmus: 0 Bilateral neck scanned, no evidence of lymphadenopathy. IMPRESSION: Unremarkable study.
== END | disposition home or self-care (01) ==
LOC: RADUSWWP 16:46
PROVIDERS: ATTEND Family Medicine
DX: R44.8 Other symptoms and signs involving general sensations and perceptions (principal)
CPT/HCPCS: 76536

== ENCOUNTER → 2021-08-22 | Outpatient (CLI) | payer BC ==
--- NOTE | 2021-08-26 08:24 | MM ---
Reason for Exam: Screening (asymptomatic). Last mammogram was performed 1 year(s) and 4 month(s) ago. Patient History: Menarche at age 10. First Full-Term at age 22. Patient used Hormonal Contraceptives for 6 years. Last menstrual period: 03/29/2012 Risk Values: Arlene 5 year model risk: 0.6%. NCI Lifetime model risk: 8.9%. Film Views: Bilateral CC views were taken. Bilateral MLO views were taken. Prior Study Comparison: 11/03/2017 Bilateral Diagnostic Mammogram, [facility]. 12/28/2018 Bilateral Screening Mammogram, [facility]. 04/26/2020 Bilateral Screening Mammogram, [facility]. Tissue Density: The breast tissue is heterogeneously dense. This may lower the sensitivity of mammography. Findings: Analyzed By CAD. Focal asymmetry upper outer quadrant left breast at a middle depth appears more defined. It isn't completely disperses on 3-D images. Further evaluation recommended. Otherwise, no significant change. Overall Assessment: Incomplete: need additional imaging evaluation, BI-RAD 0 Management: Special View Mammogram of both breasts. If lesion persists on supplemental views, image directed ultrasound is recommended. [facility] will attempt to contact patient to return for supplemental views and ultrasound if indicated. Left . 1. Additional views left breast to include spot 3-D CC, 3-D CC rolled medial, spot 3-D MLO, and 3-D ML views. Electronically signed and approved by: Lili Brooks M.D. Radiologist
== END | disposition home or self-care (01) ==
LOC: RADMAMWWP 06:55
PROVIDERS: ATTEND Obstetrics & Gynecology
DX: Z12.31 Encounter for screening mammogram for malignant neoplasm of breast (principal)
CPT/HCPCS: 77063; 77067

== ENCOUNTER → 2021-08-29 | Outpatient (CLI) | payer BC ==
--- NOTE | 2021-08-29 10:30 | MM ---
Reason for Exam: Additional evaluation requested from abnormal screening. Last screening mammogram was performed less than 1 month ago. Patient History: Menarche at age 10. First Full-Term at age 22. Patient used Hormonal Contraceptives for 6 years. Risk Values: Arlene 5 year model risk: 0.6%. NCI Lifetime model risk: 8.9%. Prior Study Comparison: 12/28/2018 Bilateral Screening Mammogram, [facility]. 04/26/2020 Bilateral Screening Mammogram, [facility]. 08/22/2021 Bilateral MG 3D screening mammo w/cad, [facility]. Tissue Density: Left: The breast tissue is heterogeneously dense. This may lower the sensitivity of mammography. Findings: Analyzed By CAD. Under compression the area of distortion appears to disperse normally. Given the apparent change in this region, short-term follow-up is recommended. Overall Assessment: Probably benign, BI-RAD 3 Management: Diagnostic Mammogram of the left breast in 6 months. A clinical breast exam by your physician is recommended on an annual basis and results should be correlated with mammographic findings. This exam should not preclude additional follow-up of suspicious palpable abnormalities. Results were given to the patient verbally at the time of exam. Electronically signed and approved by: Tarik Knapp D.O. Radiologis
== END | disposition home or self-care (01) ==
LOC: RADMAMWWP 10:04
PROVIDERS: ATTEND Obstetrics & Gynecology
DX: R92.8 Other abnormal and inconclusive findings on diagnostic imaging of breast (principal)
CPT/HCPCS: 77061; 77065

== ENCOUNTER → 2021-09-24 | Outpatient (CLI) | payer BC ==
[~2021-09-24] MED LIST changes: +BEBTELOVIMAB (EUA) 175 MG/2 ML VIAL IV NR; -LACTATED RINGERS 1,000 ML IV SCH; -LIDOCAINE 1% 20 ML VIAL (10MG/ML) FOR IV START INTRADERMA PRN; +SODIUM CHLORIDE 0.9% 500 ML 500 ML in EMPTY BAG 1 BAG IV PRN
[2021-09-24 14:01] VITALS: BP 125/78; PULSE 86; RESP 16
== END ==
LOC: PROCWHC3 12:00
PROVIDERS: ATTEND Nurse Practitioner Adult Health
DX: U07.1 COVID-19 (principal); E66.9 Obesity, unspecified; E11.9 Type 2 diabetes mellitus without complications; Z68.33 Body mass index [BMI] 33.0-33.9, adult; Z88.8 Allergy status to other drugs, medicaments and biological substances
CPT/HCPCS: Q0222; M0222

== ENCOUNTER → 2021-10-10 | Outpatient (CLI) | payer BC ==
[2021-10-10 14:19] LABS: Basophils # (A) 0.08 X 10*3/uL (0.00-0.10); Eosinophils # (A) 0.37 X 10*3/uL (0.04-0.35); Eosinophils % (A) 4.6 %; HCT 40.1 % (37.2-46.3); HGB 12.8 g/dL (12.0-15.0); Immature Grans, Automated 0.7 %; Lymphocytes # (A) 2.42 X 10*3/uL (0.90-5.00); Lymphocytes % (A) 29.9 %; MCH 31.8 pg (27.0-32.0); MCHC 31.9 g/dL (32.0-37.0); MCV 99.8 fL (80.0-97.0); Mean Platelet Volume 11.8 fL (9.5-12.2); Monocytes # (A) 0.55 X 10*3/uL (0.20-1.00); Monocytes % (A) 6.8 %; NRBC Per 100 WBC 0 /100 WBCS (0.0-0.0); Neutrophils # (A) 4.62 X 10*3/uL (1.80-7.70); Platelet Count 223 X 10*3/uL (140-440); RBC 4.02 X 10*6/uL (4.10-5.20); RDW 13.1 % (11.5-14.5)
[2021-10-10 14:24] LABS: African American GFR (CKD) 128.2 (60.0-200.0); Albumin 4.5 g/dL (3.8-4.9); Albumin/Globulin Ratio 1.77 (1.60-3.17); BUN/Creat Ratio 16.16 Ratio (12.00-20.00); Blood Urea Nitrogen 10.2 mg/dL (9.0-27.0); Calcium 9.2 mg/dL (8.7-10.3); Carbon Dioxide 24.6 mmol/L (20.0-27.5); Globulin 2.6 g/dL (1.6-3.3); Non-African American GFR(CKD) 110.6 (60.0-200.0); Potassium 4.1 mmol/L (3.5-5.5); Total Bilirubin 0.5 mg/dL (0.30-1.20); Total Protein 7.1 g/dL (6.2-8.2)
[2021-10-10 15:02] LABS: Erythrocyte Sedimentation Rate 10 mm/Hr (0-20)
== END | disposition home or self-care (01) ==
LOC: LABWHC1 09:59
PROVIDERS: ATTEND Physician Assistant
DX: K50.90 Crohn's disease, unspecified, without complications (principal)
CPT/HCPCS: 36415; 80053; 85025; 85652

== ENCOUNTER 2022-01-12 04:20 | Observation (INO) | payer BC ==
[2022-01-12 04:41] VITALS: TEMP 98
[2022-01-12 04:58] LABS: Basophils # (A) 0.1 k/uL (0-0.2); Basophils % (A) 1 %; Eosinophils # (A) 0.1 k/uL (0-0.7); Eosinophils % (A) 0 %; HGB 15.2 gm/dL (11.4-16.0); Lymphocytes # (A) 4.2 k/uL (1.0-4.8); Lymphocytes % (A) 27 %; MCH 33.8 pg (25.0-35.0); MCHC 33.8 g/dL (31.0-37.0); Mean Platelet Volume 8.6; Monocytes # (A) 0.6 k/uL (0-1.0); Monocytes % (A) 4 %; Neutrophils # (A) 10.4 k/uL (1.3-7.7); Neutrophils % (A) 67 %; Platelet Count 230 k/uL (150-450); RDW 12.8 % (11.5-15.5); WBC 15.7 k/uL (3.8-10.6)
--- NOTE | 2022-01-12 05:06 | XR ---
EXAMINATION TYPE: XR chest 2V DATE OF EXAM: 01/12/2022 COMPARISON: 07/12/2016 HISTORY: Cough TECHNIQUE: 2 view FINDINGS: Heart and mediastinum are normal. Lungs are clear. Diaphragm is normal. There are chest cuauhtemoc ds. Bony thorax appears normal. IMPRESSION: Normal chest. No change.
--- NOTE | 2022-01-12 05:15 | ED ---
Chest Pain HPI - General Chief Complaint: Chest Pain Stated Complaint: Chest Pain Time Seen by Provider: 01/12/22 04:28 Source: patient Mode of arrival: ambulatory - History of Present Illness MD Complaint: chest pain Onset/Timin -: hour(s) Onset: awoke with symptoms Pain Location: substernal Pain Radiation: none Severity: moderate Quality: tightness Consistency: constant Improves With: nothing Worsens With: nothing Treatments Prior to Arrival: none - Related Data Home Medications Medication Instructions Recorded Confirmed Mesalamine [Lialda] 3.6 gm PO DAILY 11/17/13 01/27/20 Cetirizine HCl [Zyrtec] 10 mg PO DAILY 07/12/16 01/27/20 Cholestyramine (with Sugar) 1 scoop PO DAILY 07/12/16 01/27/20 [Questran Powder] Fluticasone Nasal [place] [Flonase 1 spray EA NOSTRIL DAILY 10/14/17 01/27/20 Nasal [place]] Mometasone Inhalr 220 Mcg/Puff 1 puff INHALATION RT-DAILY 01/26/18 01/27/20 [Asmanex] Famotidine [Pepcid] 20 mg PO QAM 01/18/19 01/27/20 Mirabegron [Myrbetriq] 50 mg PO Q48H 01/18/19 01/27/20 Hydrocortisone Cream 1 applic TOPICAL DAILY PRN 01/27/20 01/27/20 [Hydrocortisone 2.5% Cream] Hydrocortisone Suppository 25 mg RECTAL BID 01/27/20 01/27/20 [Anusol-Hc] Semaglutide [Ozempic] 0.25 mg SQ FR 01/27/20 01/27/20 Triamcinolone 0.1% Cream [Kenalog 1 applicatio TOPICAL DAILY PRN 01/27/20 01/27/20 0.1% Cream] Previous Rx's Medication Instructions Recorded Ciprofloxacin HCl [Cipro] 500 mg PO Q12HR #20 tablet 01/27/20 metroNIDAZOLE [Flagyl] 500 mg PO QID 10 Days #40 tab 01/27/20 predniSONE [Deltasone] 40 mg PO DAILY #8 tab 01/27/20 Allergies Allergy/AdvReac Type Severity Reaction Status Date / Time escitalopram oxalate AdvReac Hallucinati Verified 09/24/21 12:49 [From Lexapro] ons metformin AdvReac Diarrhea Verified 09/24/21 12:49 Review of Systems ROS Statement: Those systems with pertinent positive or pertinent negative responses have been documented in the HPI. ROS Other: All systems not noted in ROS Statement are negative. Constitutional: Denies: fever, chills Respiratory: Denies: cough, dyspnea Cardiovascular: Reports: chest pain. 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),"prediabetes" History of Any Multi-Drug Resistant Organisms: None Reported Past Surgical History: Appendectomy, Bladder Surgery, Bowel Resection, Section, Cholecystectomy, Uterine Ablation Additional Past Surgical History / Comment(s): Colonoscopies, colon resection R/T CROHN'S, EGD, esophageal manometry, cystoscopy/monarch sling Past Anesthesia/Blood Transfusion Reactions: Motion Sickness, Postoperative Nausea & Vomiting (PONV) Past Psychological History: Anxiety Smoking Status: Never smoker Past Alcohol Use History: Occasional Past Drug Use History: None Reported - Past Family History Father Family Medical History: Diabetes Mellitus, Hyperlipidemia Additional Family Medical History / Comment(s): diabetes, high bp Mother Family Medical History: Diabetes Mellitus, Hypertension Additional Family Medical History / Comment(s): uncles have heart problems but not dad Brother(s) Family Medical History: Diabetes Mellitus, Hypertension General Exam Limitations: no limitations General appearance: alert, in no apparent distress Head exam: Present: atraumatic, normocephalic Eye exam: Present: normal appearance. Absent: scleral icterus, conjunctival injection Neck exam: Present: normal inspection Respiratory exam: Present: normal lung sounds bilaterally. Absent: respiratory distress, wheezes, rales, rhonchi, stridor Cardiovascular Exam: Present: regular rate, normal rhythm, normal heart sounds. Absent: systolic murmur, diastolic murmur, rubs, gallop GI/Abdominal exam: Present: soft. Absent: distended, tenderness, guarding, rebound, rigid, mass Extremities exam: Present: normal inspection, normal capillary refill. Absent: pedal edema, calf tenderness Back exam: Present: normal inspection. Absent: CVA tenderness (R), CVA tenderness (L) Neurological exam: Present: alert Skin exam: Present: warm, dry, intact, normal color. Absent: rash Course Vital Signs 01/12/22 01/12/22 04:39 05:33 Temperature 98 F Pulse Rate 90 80 Respiratory 18 16 Rate Blood Pressure 149/95 140/75 O2 Sat by Pulse 98 98 Oximetry Disposition Clinical Impression: Chest pain Disposition: ADMITTED IP TO THIS HOSP Condition: Good Instructions (If sedation given, give patient instructions): Chest Pain (ED) Is patient prescribed a controlled substance at d/c from ED?: No Referrals: Milton Milton MD [Primary Care Provider] - 1-2 days
[2022-01-12 05:30] LABS: ALT 25 U/L (4-34); AST 21 U/L (14-36); African American GFR (CKD) >90 (>60 ml/min/1.73 sqM); Albumin 4.6 g/dL (3.5-5.0); Alkaline Phosphatase 104 U/L (38-126); Anion Gap 15 mmol/L; Blood Urea Nitrogen 12 mg/dL (7-17); Calcium 9.2 mg/dL (8.4-10.2); Carbon Dioxide 19 mmol/L (22-30); Chloride 101 mmol/L (98-107); Glucose 145 mg/dL (74-99); INR 0.9 (<1.2); Magnesium 1.9 mg/dL (1.6-2.3); Non-African American GFR(CKD) >90 (>60 ml/min/1.73 sqM); Potassium 4.1 mmol/L (3.5-5.1); Sodium 135 mmol/L (137-145); Total Bilirubin 0.7 mg/dL (0.2-1.3)
[2022-01-12 05:44] LABS: Partial Thromboplastin Time 21.1 sec (22.0-30.0)
[2022-01-12 06:04] LABS: Appearance,Urine Clear (Clear); Bilirubin,Urine Negative (Negative); Blood,Urine Negative (Negative); Color,Urine Yellow; Glucose,Urine (UA) Negative (Negative); Ketones,Urine Negative (Negative); Leukocyte Esterase,Urine Negative (Negative); Nitrite,Urine Negative (Negative); PH, Urine 5.5 (5.0-8.0); Protein,Urine Negative (Negative); Specific Gravity,Urine 1.021 (1.001-1.035); Urobilinogen,Urine <2.0 mg/dL (<2.0)
[2022-01-12] MEDS ORDERED: NITROGLYCERIN SL TABS 0.4 MG TAB SUBLINGUAL PRN (07:15)
[2022-01-12] MEDS ORDERED: MORPHINE SULFATE 4 MG/ML SYRINGE IVP STA (07:38)
[2022-01-12] MEDS ORDERED: MORPHINE SULFATE 4 MG/ML SYRINGE IV PRN (07:38)
[2022-01-12 07:47] VITALS: RESP 18
[2022-01-12] MEDS ORDERED: MAG HYDROX/AL HYDROX/SIMETH 30 ML, HYOSCYAMINE ELIXIR 10 ML PO ONE ×2 (08:41)
[2022-01-12] MEDS ORDERED: LOSARTAN 50 MG TAB PO SCH (09:00)
[2022-01-12] MEDS ORDERED: ATORVASTATIN 20 MG TAB PO SCH (09:00)
--- NOTE | 2022-01-12 09:47 | P.CRDCN ---
History of Present Illness History of present illness: This is a 41 year old female with a past medical history of type 2 diabetes, asthma and Crohn's disease. 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 We have been consulted for chest pain. Patient presents to the ER with complaints of chest tightness. She states it began at 12am. It was non-radiating, non- exertional. It was constant. Nothing alleviated the pain and nothing aggravated the pain. She had associated diaphoresis, feeling warm. She states the pain did not go away, so presented to the ER for further evaluation. She denies any associated nausea, vomiting, lightheadedness, dizziness, syncope or near syncope. She denies any orthopnea, PND. She denies any history of CAD, MS, strok e, dyslipidemia. She states her BP has been elevated in her PCP office but not started on any antihypertensive medications. Family history includes, paternal grandmother of MS less than 60 years old. DIAGNOSTICS * EKG reveals sinus rhythm, heart rate 97, non-specific T wave abnormalities, no acute ischemia * Stress echocardiogram test in 2018 was negative for inducible ischemia * Telemetry tracings indicate sinus rhythm * Chest xray no acute cardiopulmonary process * Laboratory reviewed, troponin negative 1, sodium 135, potassium 4.1, BUN 12, syncope and 0.5, magnesium 1.9, WBC 15.7, hemoglobin 15.2, platelets 230 * Current home medications include Flovent, Larisa, Nexium, Albuterol, Ozempic, Flonase, Questran, Lialda REVIEW OF SYSTEMS At the time of my exam: CONSTITUTIONAL: Denies fever or chills. CARDIOVASCULAR: Denies chest pain, shortness of breath, orthopnea, PND or palpitations. RESPIRATORY: Denies cough. GASTROINTESTINAL: Denies abdominal pain, diarrhea, constipation, nausea or vomiting. MUSCULOSKELETAL: Denies myalgias. NEUROLOGIC: Denies numbness, tingling, headache or weakness. ENDOCRINE: Denies fatigue, weight change, polydipsia or polyurina. GENITOURINARY: Denies burning, hematuria or urgency with micturation. HEMATOLOGIC: Denies history of anemia or bleeding. PHYSICAL EXAMINATION Blood pressure 151/100, heart rate 9, afebrile, oxygen saturation 90% on 2 L nasal cannula CONSTITUTIONAL: No apparent distress. HEENT: Head is normocephalic. Pupils are equal, round. Sclerae anicteric. Mucous membranes of the mouth are moist. No JVD. No carotid bruit. CHEST EXAMINATION: Lungs are clear to auscultation. No chest wall tenderness is noted on palpation or with deep breathing. HEART EXAMINATION: Regular rate and rhythm. S1, S2 heard. No murmurs, gallops or rub. ABDOMEN: Soft, nontender. Positive bowel sounds. EXTREMITIES: 2+ peripheral pulses, no lower extremity edema and no calf tenderness. SKIN: warm, dry NEUROLOGIC EXAMINATION: Patient is awake, alert and oriented x3. ASSESSMENT Chest tightness, acute coronary syndrome has been ruled out Type 2 Diabetes Hypertension Asthma Chron's disease PLAN Check second troponin, if negative we will perform a stress echo test to assess for stress induced cardiac ischemia pending patient agreeable to test. If stress test is negative, no further inpatient workup from a cardiology perspective. Recommend ACEI/ARB secondary to hypertension and type 2 diabetes Recommend atorvastatin Thank you kindly for this consultation. Nurse practitioner note has been reviewed by physician. Signing provider agrees with the documented findings, assessment, and plan of care. 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),"prediabetes" History of Any Multi-Drug Resistant Organisms: None Reported Past Surgical History: Appendectomy, Bladder Surgery, Bowel Resection, Section, Cholecystectomy, Uterine Ablation Additional Past Surgical History / Comment(s): Colonoscopies, colon resection R/T CROHN'S, EGD, esophageal manometry, cystoscopy/monarch sling Past Anesthesia/Blood Transfusion Reactions: Motion Sickness, Postoperative Na usea & Vomiting (PONV) Past Psychological History: Anxiety Smoking Status: Never smoker Past Alcohol Use History: Occasional Past Drug Use History: None Reported - Past Family History Father Family Medical History: Diabetes Mellitus, Hyperlipidemia Additional Family Medical History / Comment(s): diabetes, high bp Mother Family Medical History: Diabetes Mellitus, Hypertension Additional Family Medical History / Comment(s): uncles have heart problems but not dad Brother(s) Family Medical History: Diabetes Mellitus, Hypertension Medications and Allergies Home Medications Medication Instructions Recorded Confirmed Type Mesalamine [Lialda] 3.6 gm PO DAILY 11/17/13 01/12/22 History Cholestyramine (with Sugar) 1 scoop PO DAILY 07/12/16 01/12/22 History [Questran Powder] Fluticasone Nasal [place] [Flonase 1 spray EA NOSTRIL DAILY 10/14/17 01/12/22 History Nasal [place]] Semaglutide [Ozempic] 0.25 mg SQ FR 01/27/20 01/12/22 History Albuterol Inhaler [Ventolin Hfa 1 - 2 puff INHALATION RT-Q6H PRN 01/12/22 01/12/22 History Inhaler] Esomeprazole Magnesium [NexIUM] 40 mg PO DAILY 01/12/22 01/12/22 History Fexofenadine HCl [Larisa Allergy] 180 mg PO DAILY 01/12/22 01/12/22 History Fluticasone Propionate 220 Mcg 2 puff INHALATION RT-BID 01/12/22 01/12/22 History [Flovent 220 Mcg Inhaler] Allergies Allergy/AdvReac Type Severity Reaction Status Date / Time escitalopram oxalate AdvReac Hallucinati Verified 01/12/22 08:28 [From Lexapro] ons metformin AdvReac Diarrhea Verified 01/12/22 08:28 Physical Exam Vitals: Vital Signs Temp Pulse Resp BP Pulse Ox 01/12/22 07:43 89 18 151/100 98 01/12/22 05:33 80 16 140/75 98 01/12/22 04:39 98 F 90 18 149/95 98 Intake and Output 01/11/22 01/12/22 01/12/22 22:59 06:59 14:59 Other: Weight 86 kg Results 01/12/22 04:35 01/12/22 04:35 Cardiac Enzymes 01/12/22 01/12/22 Range/Units 04:35 04:35 AST 21 (14-36) U/L Troponin I <0.012 (0.000-0.034) ng/mL Coagulation 01/12/22 Range/Units 04:35 PT 10.0 (9.0-12.0) sec APTT 21.1 L (22.0-30.0) sec CBC 01/12/22 Range/Units 04:35 WBC 15.7 H (3.8-10.6) k/uL RBC 4.50 (3.80-5.40) m/uL Hgb 15.2 (11.4-16.0) gm/dL Hct 45.0 (34.0-46.0) % Plt Count 230 (150-450) k/uL Comprehensive Metabolic Panel 01/12/22 Range/Units 04:35 Sodium 135 L (137-145) mmol/L Potassium 4.1 (3.5-5.1) mmol/L Chloride 101 (98-107) mmol/L Carbon Dioxide 19 L (22-30) mmol/L BUN 12 (7-17) mg/dL Creatinine 0.56 (0.52-1.04) mg/dL Glucose 145 H (74-99) mg/dL Calcium 9.2 (8.4-10.2) mg/dL AST 21 (14-36) U/L ALT 25 (4-34) U/L Alkaline Phosphatase 104 (38-126) U/L Total Protein 7.0 (6.3-8.2) g/dL Albumin 4.6 (3.5-5.0) g/dL Current Medications Generic Name Dose Route Start Last Admin Trade Name Freq PRN Reason Stop Dose Admin Aspirin 325 mg 01/13/22 09:00 Aspirin 325 Mg Tab PO DAILY JON Morphine Sulfate 4 mg 01/12/22 07:38 Morphine Sulfate 4 Mg/Ml Syringe IV Q3H PRN Pain Nitroglycerin 0.4 mg 01/12/22 07:15 Nitroglycerin Sl Tabs 0.4 Mg Tab SUBLINGUAL Q5M PRN Chest Pain Intake and Output 01/11/22 01/12/22 01/12/22 22:59 06:59 14:59 Other: Weight 86 kg 01/12/22 04:35 01/12/22 04:35
--- NOTE | 2022-01-12 10:46 | P.HPIM ---
History of Present Illness H&P Date: 01/12/22 This note will serve as a history and physical, also as the 111 discharge summary. Patient is a 40-year-old male with PMH of diabetes mellitus, asthma and Crohn's disease who presented to the ED for chest pain. Patient reports chest tightness that started around 12 AM, woke her up from sleep. Her chest pain was associated with diaphoresis. Pain has no radiation. No alleviating or aggravating factors. No nausea or vomiting. She denies any history of KS or CVA. The symptoms were concerning which brought her to the ED. She denied any headache, lower extremity edema, fever or chills, cough, shortness of breath, palpitations, changes in urination or bowel habits. No changes in appetite or weight. She denies any dizziness, numbness/weakness/tingling of the extremities. In the ED, she had an elevated BP 151/100. CBC showed WBC count of 15.7 with neutrophilia. INR was 0.9. CMP showed sodium 135, bicarb of 19, glucose 145. Troponin was less than 0.0122, EKG showing normal sinus rhythm. Urinalysis negative. Chest x-ray negative. Patient was admitted for chest pain, rule out acute coronary syndrome with cardiology consultation. Cardiology recommended stress test. Stress test was negative. She was started on losartan for elevated BP. Cardiology cleared the patient for discharge. Review of systems was performed and is negative except above. General: non toxic, no distress, appears at stated age Derm: warm, dry Head: atraumatic, normocephalic, symmetric Eyes: EOMI, no lid lag, anicteric sclera Mouth: no lip lesion, mucus membranes moist Cardiovascular: S1S2 reg, no murmur, positive posterior tibial pulse bilateral, Lungs: CTA bilateral, no rhonchi, no rales , no accessory muscle use Abdominal: soft, nontender to palpation, no guarding, no appreciable organo megaly Ext: no gross muscle atrophy, no edema, no contractures Neuro: CN II-XI grossly intact, no focal neuro deficits Psych: Alert, oriented, appropriate affect Discharge Diagnosis: #Chest pain, rule out acute coronary #Elevated blood pressure without diagnosis of hypertension #Diabetes mellitus #Asthma #Crohn's disease 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),"prediabetes" History of Any Multi-Drug Resistant Organisms: None Reported Past Surgical History: Appendectomy, Bladder Surgery, Bowel Resection, Section, Cholecystectomy, Uterine Ablation Additional Past Surgical History / Comment(s): Colonoscopies, colon resection R/T CROHN'S, EGD, esophageal manometry, cystoscopy/monarch sling Past Anesthesia/Blood Transfusion Reactions: Motion Sickness, Postoperative Nausea & Vomiting (PONV) Past Psychological History: Anxiety Smoking Status: Never smoker Past Alcohol Use History: Occasional Past Drug Use History: None Reported - Past Family History Father Family Medical History: Diabetes Mellitus, Hyperlipidemia Additional Family Medical History / Comment(s): diabetes, high bp Mother Family Medical History: Diabetes Mellitus, Hypertension Additional Family Medical History / Comment(s): uncles have heart problems but not dad Brother(s) Family Medical History: Diabetes Mellitus, Hypertension Medications and Allergies Home Medications Medication Instructions Recorded Confirmed Type Mesalamine [Lialda] 3.6 gm PO DAILY 11/17/13 01/12/22 History Cholestyramine (with Sugar) 1 scoop PO DAILY 07/12/16 01/12/22 History [Questran Powder] Fluticasone Nasal [place] [Flonase 1 spray EA NOSTRIL DAILY 10/14/17 01/12/22 History Nasal [place]] Semaglutide [Ozempic] 0.25 mg SQ FR 01/27/20 01/12/22 History Albuterol Inhaler [Ventolin Hfa 1 - 2 puff INHALATION RT-Q6H PRN 01/12/22 01/12/22 History Inhaler] Aspirin 81 mg PO DAILY #30 tab 01/12/22 Rx Atorvastatin [Lipitor] 20 mg PO DAILY #30 tab 01/12/22 Rx Esomeprazole Magnesium [NexIUM] 40 mg PO DAILY 01/12/22 01/12/22 History Fexofenadine HCl [Larisa Allergy] 180 mg PO DAILY 01/12/22 01/12/22 History Fluticasone Propionate 220 Mcg 2 puff INHALATION RT-BID 01/12/22 01/12/22 History [Flovent 220 Mcg Inhaler] Losartan [Cozaar] 50 mg PO DAILY #30 tab 01/12/22 Rx Allergies Allergy/AdvReac Type Severity Reaction Status Date / Time escitalopram oxalate AdvReac Hallucinati Verified 01/12/22 08:28 [From Lexapro] ons metformin AdvReac Diarrhea Verified 01/12/22 08:28 Physical Exam Vitals: Vital Signs Temp Pulse Resp BP Pulse Ox 01/12/22 07:43 89 18 151/100 98 01/12/22 05:33 80 16 140/75 98 01/12/22 04:39 98 F 90 18 149/95 98 Intake and Output 01/11/22 01/12/22 01/12/22 22:59 06:59 14:59 Other: Weight 86 kg Results CBC & Chem 7: 01/12/22 04:35 01/12/22 04:35 Labs: Abnormal Lab Results - Last 24 Hours (Table) 01/12/22 01/12/22 01/12/22 Range/Units 04:35 04:35 04:35 WBC 15.7 H (3.8-10.6) k/uL Neutrophils # 10.4 H (1.3-7.7) k/uL APTT 21.1 L (22.0-30.0) sec Sodium 135 L (137-145) mmol/L Carbon Dioxide 19 L (22-30) mmol/L Glucose 145 H (74-99) mg/dL
--- NOTE | 2022-01-12 11:43 | CA ---
Stress Echo Report Mimi Luna Age: 41 Gender: F : 1980 Exam Date: 01/12/2022 10:13 Exam Location: [facility] Ht (in): 65 Wt (lb): 189 Ordering Physician: Shirlene Duong Referring Physician: LUCERO,, Board Stacker: Susana Goldsmith RDCS Technologist Procedure CPT: Indication: Chest Pain ICD-9 Codes: Rhythm: Patient History: Cardiac Medications: Medications in past 24 hours: Contrast: Stress Results Protocol: Lenard Total dose(mL): Exercise Duration (min:sec): 7.[address] Depression (mm): Angina Score: Givens Score: METS: 9.1 Resting HR: 101 Resting BP: 106 / 72 Peak HR: 160 Peak BP: 165 / 83 Max Predicted HR: 177 90 % Max Predicted HR Target HR: 150 Double Product: [id number] Stress Summary: BP Response: Reason for Termination: MAX EXERTION/TARGET HR,Dyspnea Cardiac Symptoms: DIFFICULTY IN BREATHING ECG Analysis Resting ECG: Stress ECG: Arrhythmia: Echo Analysis Resting Echo: Peak Echo Analysis: MEASUREMENTS (Male/Female) Normal Values CONCLUSIONS Baseline EKG revealed normal sinus rhythm without significant ST-T changes. Patient walked on Briseyda Lenard protocol for 7 minutes 30 seconds and achieved a maximum heart rate of 160 bpm available 85% of predicted maximal. She did not have any angina there was no arrhythmia. She had shortness of breath. EKG did not reveal any ST segment changes to indicate ischemia. This is a negative stress test with limited exercise capacity Baseline echo images reveal normal wall motion wall thickening of all segments. At peak exercise there was good augmentation of the frontal wall motion wall thickening of all segments are distant but there is no evidence of any stress-induced ischemia on this study. Negative stress test by EKG criteria normal stress echocardiogram Dr. Junior Kc MD (Electronically Signed) Final Date: 12 January 2022 11:42
[2022-01-12 16:27] VITALS: BP 126/88; PULSE 96
[2022-01-13] MEDS ORDERED: PANTOPRAZOLE 40 MG TABLET PO SCH (07:30)
[2022-01-13] MEDS ORDERED: ASPIRIN 325 MG TAB PO SCH (09:00)
[2022-01-13] MEDS ORDERED: ASPIRIN 81 MG PO SCH (09:00)
[2022-01-13] MEDS ORDERED: BALSALAZIDE DISODIUM 750 MG CAPSULE PO SCH (09:00)
[2022-01-13] MEDS ORDERED: LORATADINE 10 MG TAB PO SCH (09:00)
== END 2022-01-12 15:53 | disposition home or self-care (01) ==
LOC: EC 04:20 → 6NMEDSUR 07:19
PROVIDERS: ADMIT Internal Medicine; ATTEND Internal Medicine
DX: R07.89 Other chest pain (principal); E11.9 Type 2 diabetes mellitus without complications; J45.909 Unspecified asthma, uncomplicated; K21.9 Gastro-esophageal reflux disease without esophagitis; K50.90 Crohn's disease, unspecified, without complications; F41.9 Anxiety disorder, unspecified; I10 Essential (primary) hypertension; Z79.52 Long term (current) use of systemic steroids; Z79.82 Long term (current) use of aspirin; Z79.899 Other long term (current) drug therapy; Z83.3 Family history of diabetes mellitus; Z82.49 Family history of ischemic heart disease and other diseases of the circulatory system
CPT/HCPCS: 96374; 99285; 36415; 93005; 93351; 80053; 83735; 84484; 85025; 85610; 85730; 81003; 71046; G0378; J2270

== ENCOUNTER 2022-03-11 13:52 | Emergency (ER) | payer BC ==
[2022-03-11 14:23] VITALS: TEMP 98.9
[2022-03-11 14:50] LABS: ALT 27 U/L (4-34); AST 37 U/L (14-36); African American GFR (CKD) >90 (>60 ml/min/1.73 sqM); Albumin 4.5 g/dL (3.5-5.0); Alkaline Phosphatase 141 U/L (38-126); Anion Gap 11 mmol/L; Blood Urea Nitrogen 9 mg/dL (7-17); Calcium 9.1 mg/dL (8.4-10.2); Carbon Dioxide 21 mmol/L (22-30); Chloride 107 mmol/L (98-107); Glucose 121 mg/dL (74-99); Magnesium 1.7 mg/dL (1.6-2.3); Non-African American GFR(CKD) >90 (>60 ml/min/1.73 sqM); Potassium 3.5 mmol/L (3.5-5.1); Sodium 139 mmol/L (137-145); Total Bilirubin 0.7 mg/dL (0.2-1.3)
[2022-03-11 14:51] LABS: Basophils # (A) 0.1 k/uL (0-0.2); Basophils % (A) 1 %; Eosinophils # (A) 0.2 k/uL (0-0.7); Eosinophils % (A) 3 %; HCT 38.7 % (34.0-46.0); Lymphocytes # (A) 0.5 k/uL (1.0-4.8); Lymphocytes % (A) 9 %; MCH 34.6 pg (25.0-35.0); MCHC 36.1 g/dL (31.0-37.0); Mean Platelet Volume 8.2; Monocytes # (A) 0.4 k/uL (0-1.0); Monocytes % (A) 6 %; Neutrophils # (A) 4.5 k/uL (1.3-7.7); Neutrophils % (A) 79 %; Platelet Count 193 k/uL (150-450); RBC 4.03 m/uL (3.80-5.40); RDW 13.1 % (11.5-15.5); WBC 5.7 k/uL (3.8-10.6)
[2022-03-11 15:13] LABS: INR 0.9 (<1.2); Prothrombin Time 9.9 sec (9.0-12.0)
--- NOTE | 2022-03-11 16:23 | ED ---
URI HPI - General Chief Complaint: Upper Respiratory Infection Stated Complaint: hypertension, cough - sent by pcp Time Seen by Provider: 03/11/22 16:06 Source: patient Mode of arrival: ambulatory Limitations: no limitations - History of Present Illness Initial Comments: This 41-year-old female presents with complaint of a cough which she's had for approximately 3 days. She has had occasional clearish production. She denies any fevers or chills. She was seen at primary care's office and sent to the ER. They apparently did not have any covid tests at their facility. She has had some decrease in energy and myalgias. She denies any chest pain. Her heart rate apparently was elevated at primary care facility. She denies any leg pain or swelling or history of DVT or PE. She states that she has not been drinking much fluids recently. She does have a history of asthma and has utilized an inhaler on occasion as well. - Related Data Home Medications Medication Instructions Recorded Confirmed Mesalamine [Lialda] 3.6 gm PO DAILY 11/17/13 01/12/22 Cholestyramine (with Sugar) 1 scoop PO DAILY 07/12/16 01/12/22 [Questran Powder] Fluticasone Nasal [place] [Flonase 1 spray EA NOSTRIL DAILY 10/14/17 01/12/22 Nasal [place]] Semaglutide [Ozempic] 0.25 mg SQ FR 01/27/20 01/12/22 Albuterol Inhaler [Ventolin Hfa 1 - 2 puff INHALATION RT-Q6H PRN 01/12/22 01/12/22 Inhaler] Esomeprazole Magnesium [NexIUM] 40 mg PO DAILY 01/12/22 01/12/22 Fexofenadine HCl [Larisa Allergy] 180 mg PO DAILY 01/12/22 01/12/22 Fluticasone Propionate 220 Mcg 2 puff INHALATION RT-BID 01/12/22 01/12/22 [Flovent 220 Mcg Inhaler] Previous Rx's Medication Instructions Recorded Aspirin 81 mg PO DAILY #30 tab 01/12/22 Atorvastatin [Lipitor] 20 mg PO DAILY #30 tab 01/12/22 Losartan [Cozaar] 50 mg PO DAILY #30 tab 01/12/22 Amoxic-Pot Clav 875-125Mg 1 each PO Q12HR #20 tablet 03/11/22 [Augmentin Xr 875-056] Ipratropium-Albuterol Nebulize 3 ml INHALATION Q4H PRN #300 ml 03/11/22 [Duoneb 0.5 mg-3 mg/3 ml Soln] predniSONE [Deltasone] 20 mg PO BID #10 tab 03/11/22 Allergies Allergy/AdvReac Type Severity Reaction Status Date / Time escitalopram oxalate AdvReac Hallucinati Verified 03/11/22 14:23 [From Lexapro] ons metformin AdvReac Diarrhea Verified 03/11/22 14:23 Review of Systems ROS Statement: Those systems with pertinent positive or pertinent negative responses have been documented in the HPI. ROS Other: All systems not noted in ROS Statement are negative. 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),"prediabetes" History of Any Multi-Drug Resistant Organisms: None Reported Past Surgical History: Appendectomy, Bladder Surgery, Bowel Resection, Section, Cholecystectomy, Uterine Ablation Additional Past Surgical History / Comment(s): Colonoscopies, colon resection R/T CROHN'S, EGD, esophageal manometry, cystoscopy/monarch sling Past Anesthesia/Blood Transfusion Reactions: Motion Sickness, Postoperative Nausea & Vomiting (PONV) Past Psychological History: Anxiety Smoking Status: Never smoker Past Alcohol Use History: Occasional Past Drug Use History: None Reported - Past Family History Father Family Medical History: Diabetes Mellitus, Hyperlipidemia Additional Family Medical History / Comment(s): diabetes, high bp Mother Family Medical History: Diabetes Mellitus, Hypertension Additional Family Medical History / Comment(s): uncles have heart problems but not dad Brother(s) Family Medical History: Diabetes Mellitus, Hypertension General Exam - General Exam Comments Initial Comments: GENERAL: The patient is well nourished and well hydrated. VITAL SIGNS: Heart rate, blood pressure, respiratory rate reviewed as recorded in nurse's notes. EYES: Pupils are round and reactive. Extraocular movements are intact. No conjunctival / lid redness or swelling. ENT: No external evidence of injury, swelling, or ecchymosis. Airway is patent. Throat is clear. NECK: Nontender. No swelling or evidence of injury. No subcutaneous emphysema. Trachea is midline. No thyroid mass. HEART: Tachycardic rhythm. Good peripheral pulses. LUNGS/CHEST: Breath sounds clear and equal bilaterally. No rales, rhonchi, or wheezes. No ecchymosis, subcutaneous emphysema, or tenderness. ABDOMEN: Abdomen soft without tenderness. No palpable masses or organomegaly. No peritoneal signs. No abdominal wall swelling or ecchymosis. EXTREMITIES: No extremity tenderness. Normal muscle tone and function. No thoracolumbar tenderness. NEUROLOGIC: Sensation is grossly intact. Cranial nerve exam reveals face is symmetrical, tongue is midline, speech is clear. SKIN: No abrasions or ecchymosis is noted. No induration or masses noted. PSYCHIATRIC: Alert and oriented. Appropriate behavior and judgment. Limitations: no limitations Course Vital Signs 03/11/22 03/11/22 14:20 16:30 Temperature 98.9 F Pulse Rate 135 H 118 H Respiratory 22 18 Rate Blood Pressure 133/91 134/89 O2 Sat by Pulse 99 96 Oximetry Medical Decision Making - Medical Decision Making The patient was seen and examined. All diagnostics are reviewed. The patient did have a EKG done due to her tachycardia and this shows a sinus tachycardia at a rate of 121. There is no acute ST-T wave changes identified. The CT intervals 157, QRS duration is 83, and the QTc interval is 394. The patient had a negative chest x-ray done at her primary care's office so this was not repeated. Her viral swab tests are negative. Her laboratory including d-dimer is also essentially within normal limits. Overall, it is felt as though she likely does have a degree of bronchitis. She also has asthma and this may be exacerbated. She is instructed to stop her Atrovent breathing treatments and utilizes DuoNeb treatments instead these are prescribed. She is also prescribed Augmentin as well as prednisone. Oral fluid hydration is recommended. Return parameters are discussed. Close follow-up recommended as well. - Lab Data Result diagrams: 03/11/22 14:03/11/22: Lab Results 03/11/22 03/11/22 03/11/22 Range/Units ::: WBC 5.7 (3.8-10.6) k/uL RBC 4.03 (3.80-5.40) m/uL Hgb 14.0 (11.4-16.0) gm/dL Hct 38.7 (34.0-46.0) % MCV 96.0 (80.0-100.0) fL MCH 34.6 (25.0-35.0) pg MCHC 36.1 (31.0-37.0) g/dL RDW 13.1 (11.5-15.5) % Plt Count 193 (150-450) k/uL MPV 8.2 Neutrophils % 79 % Lymphocytes % 9 % Monocytes % 6 % Eosinophils % 3 % Basophils % 1 % Neutrophils # 4.5 (1.3-7.7) k/uL Lymphocytes # 0.5 L (1.0-4.8) k/uL Monocytes # 0.4 (0-1.0) k/uL Eosinophils # 0.2 (0-0.7) k/uL Basophils # 0.1 (0-0.2) k/uL PT 9.9 (9.0-12.0) sec INR 0.9 (<1.2) APTT 23.0 (22.0-30.0) sec D-Dimer 0.32 (<0.60) mg/L FEU Sodium 139 (137-145) mmol/L Potassium 3.5 (3.5-5.1) mmol/L Chloride 107 (98-107) mmol/L Carbon Dioxide 21 L (22-30) mmol/L Anion Gap 11 mmol/L BUN 9 (7-17) mg/dL Creatinine 0.53 (0.52-1.04) mg/dL Est GFR (CKD-EPI)AfAm >90 (>60 ml/min/1.73 sqM) Est GFR (CKD-EPI)NonAf >90 (>60 ml/min/1.73 sqM) Glucose 121 H (74-99) mg/dL Calcium 9.1 (8.4-10.2) mg/dL Magnesium 1.7 (1.6-2.3) mg/dL Total Bilirubin 0.7 (0.2-1.3) mg/dL AST 37 H (14-36) U/L ALT 27 (4-34) U/L Alkaline Phosphatase 141 H (38-126) U/L Troponin I (0.000-0.034) ng/mL Total Protein 7.0 (6.3-8.2) g/dL Albumin 4.5 (3.5-5.0) g/dL Coronavirus (PCR) (Not Detectd) Influenza Type A RNA (Not Detectd) Influenza Type B (PCR) (Not Detectd) RSV (PCR) (Negative) 03/11/22 03/11/22 03/11/22 Range/Units 14:23 14:34 14:34 WBC (3.8-10.6) k/uL RBC (3.80-5.40) m/uL Hgb (11.4-16.0) gm/dL Hct (34.0-46.0) % MCV (80.0-100.0) fL MCH (25.0-35.0) pg MCHC (31.0-37.0) g/dL RDW (11.5-15.5) % Plt Count (150-450) k/uL MPV Neutrophils % % Lymphocytes % % Monocytes % % Eosinophils % % Basophils % % Neutrophils # (1.3-7.7) k/uL Lymphocytes # (1.0-4.8) k/uL Monocytes # (0-1.0) k/uL Eosinophils # (0-0.7) k/uL Basophils # (0-0.2) k/uL PT (9.0-12.0) sec INR (<1.2) APTT (22.0-30.0) sec D-Dimer (<0.60) mg/L FEU Sodium (137-145) mmol/L Potassium (3.5-5.1) mmol/L Chloride (98-107) mmol/L Carbon Dioxide (22-30) mmol/L Anion Gap mmol/L BUN (7-17) mg/dL Creatinine (0.52-1.04) mg/dL Est GFR (CKD-EPI)AfAm (>60 ml/min/1.73 sqM) Est GFR (CKD-EPI)NonAf (>60 ml/min/1.73 sqM) Glucose (74-99) mg/dL Calcium (8.4-10.2) mg/dL Magnesium (1.6-2.3) mg/dL Total Bilirubin (0.2-1.3) mg/dL AST (14-36) U/L ALT (4-34) U/L Alkaline Phosphatase (38-126) U/L Troponin I <0.012 (0.000-0.034) ng/mL Total Protein (6.3-8.2) g/dL Albumin (3.5-5.0) g/dL Coronavirus (PCR) Not Detected (Not Detectd) Influenza Type A RNA Not Detected (Not Detectd) Influenza Type B (PCR) Not Detected (Not Detectd) RSV (PCR) Negative (Negative) Disposition Clinical Impression: Bronchitis, Cough, Sinus tachycardia Disposition: HOME SELF-CARE Condition: Fair Instructions (If sedation given, give patient instructions): Acute Bronchitis (ED) Additional Instructions: Please drink extra fluids for the next three days. Use tylenol if needed for pain or fever. Prescriptions: Amoxic-Pot Clav 875-125Mg [Augmentin Xr 875-125] 1 each PO Q12HR #20 tablet predniSONE [Deltasone] 20 mg PO BID #10 tab Ipratropium-Albuterol Nebulize [Duoneb 0.5 mg-3 mg/3 ml Soln] 3 ml INHALATION Q4H PRN #300 ml PRN Reason: Cough Is patient prescribed a controlled substance at d/c from ED?: No Referrals: Milton Milton MD [Primary Care Provider] - 1-2 days Time of Disposition: 16:22
[2022-03-11 16:32] VITALS: BP 134/89; PULSE 118; RESP 18
== END 2022-03-11 16:31 | disposition home or self-care (01) ==
LOC: EC 13:52
DX: J40 Bronchitis, not specified as acute or chronic (principal); R00.0 Tachycardia, unspecified; E11.9 Type 2 diabetes mellitus without complications; K21.9 Gastro-esophageal reflux disease without esophagitis; F41.9 Anxiety disorder, unspecified; Z88.8 Allergy status to other drugs, medicaments and biological substances; Z79.899 Other long term (current) drug therapy; Z20.822 Contact with and (suspected) exposure to COVID-19
CPT/HCPCS: 36415; 80053; 83735; 84484; 85025; 85379; 85610; 85730; 87502; 87634; 87635; 93005; 99283

== ENCOUNTER → 2022-04-17 | Outpatient (CLI) | payer BC ==
--- NOTE | 2022-04-17 11:24 | MM ---
Reason for Exam: Follow-up at short interval from prior study. Last screening mammogram was performed 8 month(s) ago. Patient History: Menarche at age 10. First Full-Term at age 22. Patient has history of breast feeding. Patient used Hormonal Contraceptives for 6 years. Risk Values: Arlene 5 year model risk: 0.6%. NCI Lifetime model risk: 8.8%. Prior Study Comparison: 04/26/2020 Bilateral Screening Mammogram, [facility]. 08/22/2021 Bilateral MG 3D screening mammo w/cad, [facility]. 08/29/2021 Left MG 3D work up w/cad LT, [facility]. Tissue Density: Left: The breast tissue is heterogeneously dense. This may lower the sensitivity of mammography. Findings: Analyzed By CAD. No suspicious calcifications or new mass identified. Focal asymmetry in the upper outer left breast is less apparent on today's exam. Overall Assessment: Benign, BI-RAD 2 Management: Screening Mammogram of both breasts in 4 months. A clinical breast exam by your physician is recommended on an annual basis and results should be correlated with mammographic findings. This exam should not preclude additional follow-up of suspicious palpable abnormalities. Results were given to the patient verbally at the time of exam. Electronically signed and approved by: Luis Holland D.O.
== END | disposition home or self-care (01) ==
LOC: RADMAMWWP 10:43
PROVIDERS: ATTEND Obstetrics & Gynecology
DX: R92.8 Other abnormal and inconclusive findings on diagnostic imaging of breast (principal)
CPT/HCPCS: 77061; 77065

== ENCOUNTER → 2022-11-03 | Outpatient (CLI) | payer BC ==
--- NOTE | 2022-11-04 07:46 | MM ---
Reason for Exam: Screening (asymptomatic). Last mammogram was performed 1 year(s) and 3 month(s) ago. Patient History: Menarche at age 10. First Full-Term at age 22. Perimenopausal. Patient has history of breast feeding. Patient used Hormonal Contraceptives for 6 years. Risk Values: Arlene 5 year model risk: 0.6%. NCI Lifetime model risk: 8.8%. Prior Study Comparison: 08/22/2021 Bilateral MG 3D screening mammo w/cad, [facility]. 08/29/2021 Left MG 3D work up w/cad LT, [facility]. 04/17/2022 Left MG 3D diag mammo w/cad LT, [facility]. Tissue Density: The breast tissue is heterogeneously dense. This may lower the sensitivity of mammography. Findings: Analyzed By CAD. There is no suspicious group of microcalcifications or new suspicious mass in either breast. Overall Assessment: Negative, BI-RAD 1 Management: Screening Mammogram of both breasts in 1 year. . Patient should continue monthly self-breast exams. A clinical breast exam by your physician is recommended on an annual basis. This exam should not preclude additional follow-up of suspicious palpable abnormalities. Note on Arlene scores and lifetime risk: 1. A Arlene score greater than 3% is considered moderate risk. If this is the case, consider specialist referral to assess eligibility for a risk reducing agent. 2. If overall lifetime risk for the development of breast cancer is 20% or higher, the patient may qualify for future screening with alternating mammogram and breast MRI. Electronically signed and approved by: Dwayne Bailon M.D. Radiologis
== END | disposition home or self-care (01) ==
LOC: RADMAMWWP 07:13
PROVIDERS: ATTEND Obstetrics & Gynecology
DX: Z12.31 Encounter for screening mammogram for malignant neoplasm of breast (principal)
CPT/HCPCS: 77063; 77067

== ENCOUNTER → 2022-11-03 | Outpatient (CLI) | payer BC ==
[2022-11-03 10:55] LABS: ALT 21 U/L (8-44); AST 20 U/L (13-35); Albumin 4.9 d/dL (3.8-4.9); Albumin/Globulin Ratio 2.33 Ratio (1.60-3.17); Alkaline Phosphatase 122 U/L (41-126); Basophils # (A) 0.07 X 10*3/uL (0.00-0.10); Basophils % (A) 0.9 %; Calcium 10.1 mg/dL (8.7-10.3); Carbon Dioxide 22.6 mmol/L (21.6-31.8); Chloride 102 mmol/L (96-109); Eosinophils # (A) 0.38 X 10*3/uL (0.04-0.35); Globulin 2.1 d/dL (1.6-3.3); Glucose 94 mg/dL (70-110); HCT 40.5 % (37.2-46.3); HGB 13.9 d/dL (12.0-15.0); Lymphocytes # (A) 1.92 X 10*3/uL (0.90-5.00); Lymphocytes % (A) 25.3 %; MCH 33.3 pg (27.0-32.0); MCHC 34.3 d/dL (32.0-37.0); MCV 97.1 FL (80.0-97.0); Mean Platelet Volume 11.2 FL (9.5-12.2); Monocytes # (A) 0.58 X 10*3/uL (0.20-1.00); Monocytes % (A) 7.6 %; NRBC Per 100 WBC 0 X 10*3/uL (0.00-0.01); Neutrophils # (A) 4.61 X 10*3/uL (1.80-7.70); Neutrophils % (A) 60.8 %; Platelet Count 224 X 10*3/uL (140-440); Potassium 4.3 mmol/L (3.5-5.5); RBC 4.17 X 10*6/uL (4.10-5.20); RDW 13.2 % (11.5-14.5); Sodium 137 mmol/L (135-145); Total Bilirubin 1.5 mg/dL (0.3-1.2); WBC 7.59 X 10*3/uL (4.50-10.00)
[2022-11-03 12:30] LABS: Erythrocyte Sedimentation Rate 14 mm/Hr (0-20)
== END | disposition home or self-care (01) ==
LOC: LABWHC1 07:27
PROVIDERS: ATTEND Physician Assistant
DX: K50.90 Crohn's disease, unspecified, without complications (principal)
CPT/HCPCS: 36415; 80053; 85025; 85652

== ENCOUNTER 2023-03-15 11:37 | Emergency (ER) | payer BC ==
[2023-03-15 12:22] LABS: Glucose,Whole Blood 95 mg/dL (70-110)
[2023-03-15 12:42] VITALS: RESP 18
[2023-03-15 13:19] LABS: Basophils # (A) 0.1 k/uL (0-0.2); Basophils % (A) 1 %; Eosinophils # (A) 0.4 k/uL (0-0.7); Eosinophils % (A) 5 %; HCT 41.7 % (34.0-46.0); HGB 14.1 gm/dL (11.4-16.0); Lymphocytes # (A) 2.3 k/uL (1.0-4.8); Lymphocytes % (A) 28 %; MCH 33.5 pg (25.0-35.0); MCHC 33.7 g/dL (31.0-37.0); MCV 99.3 fL (80.0-100.0); Monocytes # (A) 0.4 k/uL (0-1.0); Monocytes % (A) 5 %; Neutrophils # (A) 4.8 k/uL (1.3-7.7); Neutrophils % (A) 59 %; Platelet Count 266 k/uL (150-450); RDW 12.5 % (11.5-15.5); WBC 8.1 k/uL (3.8-10.6)
[2023-03-15 13:33] LABS: ALT 22 U/L (4-34); AST 25 U/L (14-36); African American GFR (CKD) >90 (>60 ml/min/1.73 sqM); Albumin 4.5 g/dL (3.5-5.0); Alkaline Phosphatase 81 U/L (38-126); Anion Gap 15 mmol/L; Blood Urea Nitrogen 12 mg/dL (7-17); Calcium 9.8 mg/dL (8.4-10.2); Carbon Dioxide 20 mmol/L (22-30); Chloride 103 mmol/L (98-107); Glucose 97 mg/dL (74-99); Non-African American GFR(CKD) >90 (>60 ml/min/1.73 sqM); Potassium 4.6 mmol/L (3.5-5.1); Sodium 138 mmol/L (137-145); Total Bilirubin 0.8 mg/dL (0.2-1.3); Total Protein 7.2 g/dL (6.3-8.2)
[2023-03-15 14:04] LABS: Glucose,Whole Blood 89 mg/dL (70-110)
--- NOTE | 2023-03-15 14:10 | ED ---
Recheck HPI - General Chief Complaint: Recheck/Abnormal Lab/Rx Stated Complaint: low sugar levels running 39-55 Time Seen by Provider: 03/15/23 13:30 Source: patient, RN notes reviewed Mode of arrival: wheelchair Limitations: no limitations - History of Present Illness Initial Comments: This is a 42-year-old female who presents to the emergency department for hypoglycemia and feeling unwell. States that earlier today her blood sugar was very low, getting down to 39. She tried to eat apple cider with sugar, and her level improved to 59, and shortly after dropped back down to the 30s. Because it happened twice, she was advised by the glucometer [employer], who contacted her when her sugar was too low, to come to the emergency department for evaluation. She feels like she is starting to feel somewhat better, but still not quite herself. MD Complaint: abnormal lab - Related Data Home Medications Medication Instructions Recorded Confirmed Mesalamine [Lialda] 3.6 gm PO DAILY 11/17/13 01/12/22 Cholestyramine (with Sugar) 1 scoop PO DAILY 07/12/16 01/12/22 [Questran Powder] Fluticasone Nasal [place] [Flonase 1 spray EA NOSTRIL DAILY 10/14/17 01/12/22 Nasal [place]] Semaglutide [Ozempic] 0.25 mg SQ FR 01/27/20 01/12/22 Albuterol Inhaler [Ventolin Hfa 1 - 2 puff INHALATION RT-Q6H PRN 01/12/22 01/12/22 Inhaler] Esomeprazole Magnesium [NexIUM] 40 mg PO DAILY 01/12/22 01/12/22 Fexofenadine HCl [Larisa Allergy] 180 mg PO DAILY 01/12/22 01/12/22 Fluticasone Propionate 220 Mcg 2 puff INHALATION RT-BID 01/12/22 01/12/22 [Flovent 220 Mcg Inhaler] Previous Rx's Medication Instructions Recorded Aspirin 81 mg PO DAILY #30 tab 01/12/22 Atorvastatin [Lipitor] 20 mg PO DAILY #30 tab 01/12/22 Losartan [Cozaar] 50 mg PO DAILY #30 tab 01/12/22 Amoxic-Pot Clav 875-125Mg 1 each PO Q12HR #20 tablet 03/11/22 [Augmentin Xr 875-125] Ipratropium-Albuterol Nebulize 3 ml INHALATION Q4H PRN #300 ml 03/11/22 [Duoneb 0.5 mg-3 mg/3 ml Soln] predniSONE [Deltasone] 20 mg PO BID #10 tab 03/11/22 Allergies Allergy/AdvReac Type Severity Reaction Status Date / Time escitalopram oxalate AdvReac Hallucinati Verified 03/11/22 14:23 [From Lexapro] ons metformin AdvReac Diarrhea Verified 03/11/22 14:23 Review of Systems ROS Statement: Those systems with pertinent positive or pertinent negative responses have been documented in the HPI. ROS Other: All systems not noted in ROS Statement are negative. 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),"prediabetes" History of Any Multi-Drug Resistant Organisms: None Reported Past Surgical History: Appendectomy, Bladder Surgery, Bowel Resection, Section, Cholecystectomy, Uterine Ablation Additional Past Surgical History / Comment(s): Colonoscopies, colon resection R/T CROHN'S, EGD, esophageal manometry, cystoscopy/monarch sling Past Anesthesia/Blood Transfusion Reactions: Motion Sickness, Postoperative Nausea & Vomiting (PONV) Past Psychological History: Anxiety Smoking Status: Never smoker Past Alcohol Use History: Occasional Past Drug Use History: None Reported - Past Family History Father Family Medical History: Diabetes Mellitus, Hyperlipidemia Additional Family Medical History / Comment(s): diabetes, high bp Mother Family Medical History: Diabetes Mellitus, Hypertension Additional Family Medical History / Comment(s): uncles have heart problems but not dad Brother(s) Family Medical History: Diabetes Mellitus, Hypertension General Exam Limitations: no limitations General appearance: alert, in no apparent distress Head exam: Present: atraumatic, normocephalic, normal inspection Respiratory exam: Present: normal lung sounds bilaterally. Absent: respiratory distress, wheezes, rales, rhonchi, stridor Cardiovascular Exam: Present: regular rate, normal rhythm, normal heart sounds. Absent: systolic murmur, diastolic murmur, rubs, gallop, clicks Neurological exam: Present: alert, oriented X3, CN II-XII intact Psychiatric exam: Present: normal affect, normal mood Skin exam: Present: warm, dry, intact, normal color. Absent: rash Course Vital Signs 03/15/23 03/15/23 12:20 16:24 Temperature 97.9 F 97.6 F Pulse Rate 79 76 Respiratory 18 18 Rate Blood Pressure 122/87 118/79 O2 Sat by Pulse 98 99 Oximetry Medical Decision Making - Medical Decision Making This is a 42-year-old female who presents to the emergency department for hypoglycemia. Was pt. sent in by a medical professional or institution? @ -No Did you speak to anyone other than the patient for history? @ -No Did you review nursing and triage notes? @ -Yes, and I agree, it is accurate with regards to the patient's symptoms. Were old charts reviewed? @ -No Differential Diagnosis? @ -Differential Hypoglycemia: Medication, dietary intake, pump failure, this is not meant to be an all- inclusive list. EKG interpreted by me (3pts min.)? @ -Not obtained X-rays interpreted by me (1pt min.)? @ -Not obtained CT interpreted by me (1pt min.)? @ -Not obtained U/S interpreted by me (1pt. min.)? @ -Not obtained What testing was considered but not performed? (CT, X-rays, U/S, labs)? Why? @ -None What meds were considered but not given? Why? @ -None Did you discuss the management of the patient with other professionals? @ -No Did you reconcile home meds? @ -No Was smoking cessation discussed for >3mins.? @ -No Was critical care preformed (if so, how long)? @ -No Were there social determinants of health that impacted care today? How? (Homelessness, low income, unemployed, alcoholism, drug addiction, tr ansportation, low edu. Level, literacy, decrease access to med. care, senior living, rehab)? @ -No Was there de-escalation of care discussed even if they declined? (Discuss DNR or withdrawal of care, Hospice)? @ -No What co-morbidities impacted this encounter? (DM, HTN, Smoking, COPD, CAD, Cancer, CVA, Hep., AIDS, mental health diagnosis, sleep apnea, morbid obesity)? @ -DM Was patient admitted / discharged? @ -Discharged. Patient's glucose was well-controlled in the emergency department, ranging from 85-95. Patient also had improvement in symptoms. Discussed that she may need to have her glucometer calibrated in the event this is inaccurate. Patient otherwise discharged home in stable condition. Undiagnosed new problem with uncertain prognosis? @ -None Drug Therapy requiring intensive monitoring for toxicity (Heparin, Nitro, Insulin, Cardizem)? @ -None Were any procedures done? @ -None Diagnosis/symptom? @ -Hypoglycemia Acute, or Chronic, or Acute on Chronic? @ -Acute Uncomplicated (without systemic symptoms) or Complicated (systemic symptoms)? @ -Uncomplicated Side effects of treatment? @ -None Exacerbation, Progression, or Severe Exacerbation] @ -Not applicable Poses a threat to life or bodily function? @ -No, this has resolved Return precautions reviewed in depth, the patient is instructed to return to the emergency department with any new, worsening, or concerning symptoms. Patient v erbalized understanding. This case was discussed in detail with the attending ED physician, Dr. Mendoza shaw. Presentation, findings, and treatment plan discussed in detail as well. - Lab Data Result diagrams: 03/15/23 13:06 03/15/23 13:06 Lab Results 03/15/23 03/15/23 03/15/23 Range/Units 12:20 13:06 13:06 WBC 8.1 (3.8-10.6) k/uL RBC 4.20 (3.80-5.40) m/uL Hgb 14.1 (11.4-16.0) gm/dL Hct 41.7 (34.0-46.0) % MCV 99.3 (80.0-100.0) fL MCH 33.5 (25.0-35.0) pg MCHC 33.7 (31.0-37.0) g/dL RDW 12.5 (11.5-15.5) % Plt Count 266 (150-450) k/uL MPV 8.0 Neutrophils % 59 % Lymphocytes % 28 % Monocytes % 5 % Eosinophils % 5 % Basophils % 1 % Neutrophils # 4.8 (1.3-7.7) k/uL Lymphocytes # 2.3 (1.0-4.8) k/uL Monocytes # 0.4 (0-1.0) k/uL Eosinophils # 0.4 (0-0.7) k/uL Basophils # 0.1 (0-0.2) k/uL Sodium 138 (137-145) mmol/L Potassium 4.6 (3.5-5.1) mmol/L Chloride 103 (98-107) mmol/L Carbon Dioxide 20 L (22-30) mmol/L Anion Gap 15 mmol/L BUN 12 (7-17) mg/dL Creatinine 0.55 (0.52-1.04) mg/dL Est GFR (CKD-EPI)AfAm >90 (>60 ml/min/1.73 sqM) Est GFR (CKD-EPI)NonAf >90 (>60 ml/min/1.73 sqM) Glucose 97 (74-99) mg/dL POC Glucose (mg/dL) 95 (70-110) mg/dL POC Glu [employer] Sales Representative ID Isabel Simmonshryn Calcium 9.8 (8.4-10.2) mg/dL Total Bilirubin 0.8 (0.2-1.3) mg/dL AST 25 (14-36) U/L ALT 22 (4-34) U/L Alkaline Phosphatase 81 (38-126) U/L Total Protein 7.2 (6.3-8.2) g/dL Albumin 4.5 (3.5-5.0) g/dL 03/15/23 03/15/23 03/15/23 Range/Units 14:02 14:47 15:09 WBC (3.8-10.6) k/uL RBC (3.80-5.40) m/uL Hgb (11.4-16.0) gm/dL Hct (34.0-46.0) % MCV (80.0-100.0) fL MCH (25.0-35.0) pg MCHC (31.0-37.0) g/dL RDW (11.5-15.5) % Plt Count (150-450) k/uL MPV Neutrophils % % Lymphocytes % % Monocytes % % Eosinophils % % Basophils % % Neutrophils # (1.3-7.7) k/uL Lymphocytes # (1.0-4.8) k/uL Monocytes # (0-1.0) k/uL Eosinophils # (0-0.7) k/uL Basophils # (0-0.2) k/uL Sodium (137-145) mmol/L Potassium (3.5-5.1) mmol/L Chloride (98-107) mmol/L Carbon Dioxide (22-30) mmol/L Anion Gap mmol/L BUN (7-17) mg/dL Creatinine (0.52-1.04) mg/dL Est GFR (CKD-EPI)AfAm (>60 ml/min/1.73 sqM) Est GFR (CKD-EPI)NonAf (>60 ml/min/1.73 sqM) Glucose (74-99) mg/dL POC Glucose (mg/dL) 89 85 90 (70-110) mg/dL POC Glu [employer] Sales Representative ID Ban, Donavon Ban, Donavon Ban, Donavon Calcium (8.4-10.2) mg/dL Total Bilirubin (0.2-1.3) mg/dL AST (14-36) U/L ALT (4-34) U/L Alkaline Phosphatase (38-126) U/L Total Protein (6.3-8.2) g/dL Albumin (3.5-5.0) g/dL Disposition Clinical Impression: Hypoglycemia Disposition: HOME SELF-CARE Instructions (If sedation given, give patient instructions): What to Do if Your Blood Sugar is Low (ED) Additional Instructions: Return to the emergency department with any new, worsening, or concerning symptoms. It is possible that your machine may need to be recalibrated. Follow up with your primary care provider in 1-2 days. Is patient prescribed a controlled substance at d/c from ED?: No Referrals: Nicolas Mena MD [Primary Care Provider] - 1-2 days
[2023-03-15 14:48] LABS: Glucose,Whole Blood 85 mg/dL (70-110)
[2023-03-15 15:12] LABS: Glucose,Whole Blood 90 mg/dL (70-110)
[2023-03-15 16:27] VITALS: BP 118/79; PULSE 76; TEMP 97.6
== END 2023-03-15 16:26 | disposition home or self-care (01) ==
LOC: EC 11:37
DX: E11.649 Type 2 diabetes mellitus with hypoglycemia without coma (principal); J45.909 Unspecified asthma, uncomplicated; K21.9 Gastro-esophageal reflux disease without esophagitis; K50.90 Crohn's disease, unspecified, without complications; Z79.84 Long term (current) use of oral hypoglycemic drugs; Z79.51 Long term (current) use of inhaled steroids; Z79.899 Other long term (current) drug therapy; Z88.8 Allergy status to other drugs, medicaments and biological substances
CPT/HCPCS: 36415; 80053; 85025; 99285

== ENCOUNTER → 2023-11-17 | Outpatient (CLI) | payer BC ==
--- NOTE | 2023-12-06 18:16 | MM ---
Reason for Exam: Screening (asymptomatic). Last screening mammogram was performed 12 month(s) ago. Patient History: Menarche at age 10. First Full-Term at age 22. Perimenopausal. Patient has history of breast feeding. Patient used Hormonal Contraceptives for 6 years. Risk Values: Arlene 5 year model risk: 0.7%. NCI Lifetime model risk: 8.7%. Prior Study Comparison: 08/29/2021 Left MG 3D work up w/cad LT, [facility]. 04/17/2022 Left MG 3D diag mammo w/cad LT, [facility]. 11/03/2022 Bilateral MG 3D screening mammo w/cad, [facility]. Tissue Density: There are scattered areas of fibroglandular density. Findings: Analyzed By CAD. Inferior asymmetric density right MLO view does not persist on additional views. Superior asymmetric density right MLO view remain unchanged. There is no suspicious group of microcalcifications or new suspicious mass in either breast. Overall Assessment: Benign, BI-RAD 2 Management: Screening Mammogram of both breasts in 1 year. . Patient should continue monthly self-breast exams. A clinical breast exam by your physician is recommended on an annual basis. This exam should not preclude additional follow-up of suspicious palpable abnormalities. Note on Arlene scores and lifetime risk: 1. A Arlene score greater than 3% is considered moderate risk. If this is the case, consider specialist referral to assess eligibility for a risk reducing agent. 2. If overall lifetime risk for the development of breast cancer is 20% or higher, the patient may qualify for future screening with alternating mammogram and breast MRI. Electronically signed and approved by: Lili Brooks M.D. Radiologist
== END | disposition home or self-care (01) ==
LOC: RADMAMWWP 17:58
PROVIDERS: ATTEND Obstetrics & Gynecology
DX: Z12.31 Encounter for screening mammogram for malignant neoplasm of breast (principal); R92.323 Mammographic fibroglandular density, bilateral breasts; Z92.0 Personal history of contraception
CPT/HCPCS: 77063; 77067